=== PATIENT | male | born 1965 | race Caucasian/White ===

== ENCOUNTER 2020-11-24 20:40 | Inpatient (IN) | payer OTHER, SELFPAY ==
--- NOTE | 2020-11-24 | ECG_ITS ---
Test Reason : ABDOMINAL PAIN Blood Pressure : / mmHG Vent. Rate : 112 BPM Atrial Rate : 112 BPM P-R Int : 164 ms QRS Dur : 092 ms QT Int : 330 ms P-R-T Axes : 060 -30 083 degrees QTc Int : 450 ms Sinus tachycardia Possible Left atrial enlargement Left axis deviation Nonspecific T wave abnormality Abnormal ECG No previous ECGs available Referred By: Generic ED Physician Electronically Signed By:QUINTIN DORMAN MD
--- NOTE | ~2020-11-24 | XR_ITS ---
EXAMINATION: XR CHEST CLINICAL INFORMATION: Chest pain COMPARISON: None TECHNIQUE: Frontal view of the chest was obtained. FINDINGS: No significant abnormality is noted involving the heart, lungs, mediastinum, bony thorax or soft tissues. Some mild atelectasis or scarring is noted at the left base. XR/XR chest 1V IMPRESSION: No acute intrathoracic disease.
--- NOTE | ~2020-11-24 | CT_ITS ---
EXAMINATION: CT ABDOMEN AND PELVIS WITH CONTRAST CLINICAL INFORMATION: Abdominal pain. COMPARISON: CT abdomen and pelvis 11/12/2019. TECHNIQUE: Multidetector volumetric images were obtained from the superior aspect of the liver through the pubic symphysis following administration 85 mL of Omnipaque 350 intravenous contrast. Sagittal and coronal reformatted images were obtained on the technologist's workstation. Oral Contrast: No. This CT examination was performed using dose optimization techniques as appropriate, variously including the following: *Automated exposure control. *Adjustment of mA and/or kV according to patient size (this includes techniques or standardized protocols for targeted exams where dose is matched to indication/reason for exam; i.e. extremities or head). *Use of iterative reconstruction technique. DLP: 863 mGy-cm FINDINGS: LUNG BASES: The visualized lung bases are unremarkable. LIVER, GALLBLADDER, AND BILIARY TREE: The liver is normal in size, shape, and attenuation. There is a 2.2 cm hypervascular peripherally enhancing mass seen in the right lobe of the liver just beneath the hemidiaphragm (3:30) unchanged in size when compared to last year's study. This most likely represents a cavernous hemangioma. This could be proven with MRI exam. Also present are 2 hypoattenuating areas adjacent to the falciform ligament and gallbladder fossa which are also unchanged and may represent focal fat deposition. Another subtle lesion is seen just medial to the falciform ligament (series 3:39) which also appears similar in size from the study just over a year ago and may represent a hemangioma as well. No other focal hepatic lesion or biliary ductal dilatation is present. The gallbladder is unremarkable with no evidence of radiopaque gallstones, gallbladder wall thickening, or obvious pericholecystic inflammatory changes. PANCREAS: Unremarkable. SPLEEN: Unremarkable. ADRENAL GLANDS: Unremarkable. KIDNEYS AND URETERS: The kidneys are normal in size, shape, and attenuation. No hydronephrosis, hydroureter, or calculi seen. No perinephric stranding. BLADDER: Poorly distended but unremarkable GASTROINTESTINAL TRACT: At the time of the prior study, there was marked thickening/dilatation of the third and fourth portions of the duodenum along with dilatation of proximal jejunum with some inflammatory changes around it. These findings are somewhat improved but the inflammatory changes still persist and there is increased ascites especially around the abnormal jejunum in the left upper quadrant/mid abdomen. The fluid extends down into the pelvis in the perirectal region. The ileum and large bowel are unremarkable. The appendix is unremarkable. ABDOMINAL WALL: No significant hernia is appreciated. LYMPH NODES: No retroperitoneal lymphadenopathy is seen. VASCULAR: Unremarkable. PELVIC VISCERA: Seminal vesicles and prostate appear normal. OSSEOUS STRUCTURES: Unremarkable. CT/CT abdomen pelvis w con IMPRESSION: 1. Abnormal loops of proximal jejunum which appear edematous with associated edematous changes in the mesentery with fluid present extending down into the pelvis. No fluid is seen in the right abdomen. The most likely diagnosis is an enteritis. 2. Multiple liver masses probably unrelated to the patient's abdominal pain. Two may be cavernous hemangiomas and the other two regions may be focal fat. Compared to the study one year ago, there has been no significant change. MRI could be performed for further diagnosis and confirmation. This critical result was discussed with Dr. Pelayo at 11:45 PM on the day of the exam and it was ascertained that the content and urgency of the report was understood at the time of direct communication.
[2020-11-24 20:55] VITALS: BP 151/93; PULSE 120; RESP 20; TEMP 36.8; O2SAT 98; BMI 29.2
--- NOTE | 2020-11-24 21:14 | ED.ABDPAIN ---
HPI - Abdominal Pain General Chief Complaint: Abdominal Pain Stated Complaint: ABD PAIN,VOMITING Time Seen by Provider: 11/24/20 21:03 History of Present Illness HPI narrative: Patient is a 55-year-old male presents today with having abdominal pain. Diffuse over the entire abdomen worse in the epigastric area. It is dull in nature. Patient has extreme nausea vomiting. Unable to tolerate p.o.. No diarrhea. No history of abdominal surgery. Claims he has a history of gastritis and have similar pains every 6 months or so. Also has a history of possible coronary artery disease. Patient claims he went to [facility] and out catheterization about 1 week ago. He denies any chest pain. He does feel short of breath which is chronic. He denies any coughing congestion upper respiratory symptoms. No diaphoresis. MD elicited complaint: abdominal pain Related Data Home Medications Medication Instructions Recorded Confirmed albuterol sulfate [ProAir HFA] 1 puff INHALATION Q4H PRN 11/24/20 11/24/20 aspirin 1 tab PO DAILY 11/24/20 11/24/20 atorvastatin 1 tab PO DAILY 11/24/20 11/24/20 clonidine HCl 1 tab PO BID 11/24/20 11/24/20 fluoxetine 1 cap PO DAILY 11/24/20 11/24/20 gabapentin 300 mg PO BIDWM 11/24/20 11/24/20 gabapentin 600 mg PO BEDTIME 11/24/20 11/24/20 hydrochlorothiazide 1 tab PO DAILY 11/24/20 11/24/20 hydroxyzine HCl 1 tab PO BID 11/24/20 11/24/20 isosorbide mononitrate 1 tab PO DAILY 11/24/20 11/24/20 lisinopril 1 tab PO DAILY 11/24/20 11/24/20 omeprazole 1 cap PO DAILY 11/24/20 11/24/20 Allergies Allergy/AdvReac Type Severity Reaction Status Date / Time nut - unspecified [NUTS] Allergy Severe ANAPHALAXSI Unverified 05/27/20 19:49 S atorvastatin [ATORVASTATIN] Allergy Mild ITCHING Unverified 05/27/20 19:49 Review of Systems Review of Systems Constitutional: No Weight loss, No Fever, No Chills, No Night Sweats, No Fatigue, No Malaise ENT/Mouth: No Hearing loss, No Ear Pain, No Nasal Congestion, No Sinus Pain, No Hoarseness, No sore throat, No Rhinorrhea, No Swallowing Difficulty Eyes: No Eye Pain, No Swelling, No Redness, No Foreign Body, No Discharge, No Vision Changes Cardiovascular: No Chest Pain, positive SOB, No Dyspnea on Exertion, No Orthopnea, No Edema, No Palpitations Respiratory: No Cough, No Sputum, No Wheezing, No Smoke Exposure, No Dyspnea Gastrointestinal: Positive nausea, vomiting, abdominal pain Genitourinary: no irregular bleeding, No Dysuria, No Urinary Frequency, No Hematuria, No Urinary Incontinence, No Urgency, No Flank Pain, No Urinary Flow Changes, No Hesitancy Musculoskeletal: No joint pain, No Myalgias, No Joint Swelling Skin: No Skin Lesions, No rash Neuro: No Weakness, No Numbness, No Paresthesias, No Loss of Consciousness, No Dizziness, No Headache Psych: No Anxiety/Panic, No Depression, No SI/HI/AH/VH, No Social Issues, Heme/Lymph: No Bruising, No Bleeding,No Lymphadenopathy Endocrine: No Polyuria, No Polydipsia, No Temperature Intolerance Physical Exam Vital Signs: Vital Signs: Last Vital Signs Temp 98.2 F 11/24/20 20:55 Pulse 120 H 11/24/20 20:55 Resp 20 11/24/20 21:33 BP 151/93 H 11/24/20 20:55 Pulse Ox 98 11/24/20 20:55 Body Mass Index 29.2 Appearance: Alert. Oriented X3. No acute distress. Eyes: Pupils equal, round and reactive to light. ENT: Pharynx normal. Neck: Normal inspection. Neck supple. No lymph nodes noted. No crepitus CVS: Normal heart rate and rhythm. Pulses normal. Normal S1 and S2 Respiratory: No respiratory distress. Breath sounds normal. No Wheezing. No rales Abdomen: Soft and nontender. No rigidity. No distention. good BS x4 Skin: Skin warm and dry. Normal skin color. Normal skin turgor. Extremities: No lower extremity edema. Neurovascular intact to all extremities. No Lacerations. No Rash Neuro: Oriented X 3. No motor deficit. No sensory deficit. Moving all extermities. No slurred speech MDM - Abdominal Pain MDM Narrative Medical decision making narrative: Patient continued to have abdominal pain CT scan showed no obvious obstruction, abscess, perforation. Patient's troponin was negative. Chest x-ray negative for pneumonia. Will admit for further pain management. Nausea. Currently in stable condition. Lab Data Result diagrams: 11/24/20 21:29 11/24/20 21:29 Labs: Lab Results 11/24/20 11/24/20 11/24/20 Range/Units 21:28 21:29 21:29 WBC 4.6 L (4.8-10.8) X10*3/uL RBC 5.51 (4.60-5.80) X10*6/uL Hgb 16.3 (14.0-18.0) g/dl Hct 47.4 (42-52) % MCV 86.0 (80-98) fL MCH 29.6 (27.0-33.0) pg MCHC 34.4 (31.0-36.0) g/dl RDW 12.8 (11.0-16.0) % Plt Count 327 (160-400) X10*3/uL MPV 8.8 L (9.4-12.4) fL Immature Gran % (Auto) 0.4 (0.0-0.4) % Neut % (Auto) 59.2 (45-73) % Lymph % (Auto) 25.2 (20-40) % Mcdonough % (Auto) 13.4 H (2-11) % Eos % (Auto) 1.1 (0-4) % Baso % (Auto) 0.7 (0-2) % Lymph # (Auto) 1.2 (1.2-4.9) X10*3/uL Mcdonough # (Auto) 0.6 (0.1-1.2) X10*3/uL Eos # (Auto) 0.1 (0.0-0.4) X10*3/uL Baso # (Auto) 0.0 (0.0-0.2) X10*3/uL Abs Immat Gran (auto) 0.02 (0.00-0.03) X10*3/uL Absolute Neuts (auto) 2.7 (2.0-8.3) X10*3/uL Absolute Nucleated RBC 0.000 (0.0-0.012) X10*3/uL Nucleated RBC % (auto) 0.0 (0.0-0.2) /100WBC Sodium 138 (135-145) mmol/L Potassium 4.4 (3.3-5.1) mmol/L Chloride 100 (96-108) mmol/L Carbon Dioxide 28 (22-29) mmol/L Anion Gap 14 (12-20) BUN 18 H (9-16) mg/dL Creatinine 1.14 (0.5-1.4) mg/dL Estim Creat Clear Calc 88.2 Estimated GFR > 60 Random Glucose 128 H (60-115) mg/dL Lactic Acid (0.5-2.0) mmol/L Calcium 10.9 H (8.4-10.2) mg/dL Total Bilirubin 0.6 (0.0-1.0) mg/dL AST 40 H (5-37) U/L ALT 43 H (0-40) U/L Alkaline Phosphatase 71 (39-117) U/L Troponin I High Sens 22.9 (<3.5-35.0) ng/L Total Protein 7.2 (6.5-8.0) g/dL Albumin 4.4 (3.5-5.0) g/dL Lipase 76 (8-78) U/L Urine Color Urine Appearance Urine pH (5.0-8.0) Ur Specific [place] (1.005-1.025) Urine Protein (NEG-TRACE) MG/DL Urine Glucose (UA) (NEG) MG/DL Urine Ketones (NEG) MG/DL Urine Blood (NEG) Urine Nitrite (NEG) Ur Leukocyte Esterase (NEG) 11/24/20 11/25/20 Range/Units 21:29 00:32 WBC (4.8-10.8) X10*3/uL RBC (4.60-5.80) X10*6/uL Hgb (14.0-18.0) g/dl Hct (42-52) % MCV (80-98) fL MCH (27.0-33.0) pg MCHC (31.0-36.0) g/dl RDW (11.0-16.0) % Plt Count (160-400) X10*3/uL MPV (9.4-12.4) fL Immature Gran % (Auto) (0.0-0.4) % Neut % (Auto) (45-73) % Lymph % (Auto) (20-40) % Mcdonough % (Auto) (2-11) % Eos % (Auto) (0-4) % Baso % (Auto) (0-2) % Lymph # (Auto) (1.2-4.9) X10*3/uL Mcdonough # (Auto) (0.1-1.2) X10*3/uL Eos # (Auto) (0.0-0.4) X10*3/uL Baso # (Auto) (0.0-0.2) X10*3/uL Abs Immat Gran (auto) (0.00-0.03) X10*3/uL Absolute Neuts (auto) (2.0-8.3) X10*3/uL Absolute Nucleated RBC (0.0-0.012) X10*3/uL Nucleated RBC % (auto) (0.0-0.2) /100WBC Sodium (135-145) mmol/L Potassium (3.3-5.1) mmol/L Chloride (96-108) mmol/L Carbon Dioxide (22-29) mmol/L Anion Gap (12-20) BUN (9-16) mg/dL Creatinine (0.5-1.4) mg/dL Estim Creat Clear Calc Estimated GFR Random Glucose (60-115) mg/dL Lactic Acid 1.4 (0.5-2.0) mmol/L Calcium (8.4-10.2) mg/dL Total Bilirubin (0.0-1.0) mg/dL AST (5-37) U/L ALT (0-40) U/L Alkaline Phosphatase (39-117) U/L Troponin I High Sens (<3.5-35.0) ng/L Total Protein (6.5-8.0) g/dL Albumin (3.5-5.0) g/dL Lipase (8-78) U/L Urine Color YELLOW Urine Appearance CLEAR Urine pH 6.5 (5.0-8.0) Ur Specific [place] 1.015 (1.005-1.025) Urine Protein NEG (NEG-TRACE) MG/DL Urine Glucose (UA) NEG (NEG) MG/DL Urine Ketones NEG (NEG) MG/DL Urine Blood NEG (NEG) Urine Nitrite NEG (NEG) Ur Leukocyte Esterase NEG (NEG) ECG Data Interpretation: Sinus right bundle branch block heart rate was 90 per Discharge Plan Discharge Clinical Impression: Abdominal pain Patient Disposition: Admitted As Inpatient Prescriptions: No Action fluoxetine 40 mg capsule 1 cap PO DAILY RF: 0 atorvastatin 80 mg tablet 1 tab PO DAILY RF: 0 clonidine HCl 0.1 mg tablet 1 tab PO BID RF: 0 isosorbide mononitrate 30 mg tablet extended release 24 hr 1 tab PO DAILY RF: 0 hydroxyzine HCl 50 mg tablet 1 tab PO BID RF: 0 aspirin 81 mg tablet,delayed release (DR/EC) 1 tab PO DAILY RF: 0 gabapentin 300 mg capsule 300 mg PO BIDWM RF: 0 gabapentin 300 mg capsule 600 mg PO BEDTIME RF: 0 omeprazole 20 mg capsule,delayed release(DR/EC) 1 cap PO DAILY RF: 0 hydrochlorothiazide 25 mg tablet 1 tab PO DAILY RF: 0 albuterol sulfate [ProAir HFA] 90 mcg/actuation HFA aerosol inhaler 1 puff inhalation Q4H PRN (Reason: Shortness Of Breath) RF: 0 lisinopril 40 mg tablet 1 tab PO DAILY RF: 0 PMFSH Past Medical History Medical History (Updated 11/25/20 @ 01:33 by Swathi Pelayo MD) HTN (hypertension) Myocardial infarction Social History Social History Alcohol intake: never Smoking Status: Never smoker Use of substances other than those prescribed or required for medical reasons: No Advance Directives: No Advance Directives Information Provided: No
[2020-11-24 21:33] VITALS: RESP 20
[2020-11-24] MEDS: 0.9 % Sodium Chloride 1,000 ML 999 ML IV (21:33)
[2020-11-24] MEDS: HYDROmorphone HCl 0.5 MG/0.5 ML SYRINGE IVPUSH (21:33)
[2020-11-24] MEDS: ondansetron HCL 4 MG/2 ML VIAL IVPUSH (21:33)
[2020-11-24 21:36] LABS: Basophils Percent Auto 0.7 % (0-2); Eosinophils Absolute Auto 0.1 X10*3/uL (0.0-0.4); Eosinophils Percent Auto 1.1 % (0-4); Hematocrit 47.4 % (42-52); Hemoglobin 16.3 g/dl (14.0-18.0); Imm Gran Abs Auto 0.02 X10*3/uL (0.00-0.03); Imm Gran Pct Auto 0.4 % (0.0-0.4); Lymphocytes Absolute Auto 1.2 X10*3/uL (1.2-4.9); Lymphocytes Percent Auto 25.2 % (20-40); MANUAL DIFF FLAG NO; Mean Corpuscular HGB Conc 34.4 g/dl (31.0-36.0); Mean Corpuscular Hemoglobin 29.6 pg (27.0-33.0); Mean Platelet Volume 8.8 fL (9.4-12.4); Monocytes Absolute Auto 0.6 X10*3/uL (0.1-1.2); Monocytes Percent Auto 13.4 % (2-11); Neutrophils Absolute Auto 2.7 X10*3/uL (2.0-8.3); Neutrophils Percent Auto 59.2 % (45-73); Platelet Count 327 X10*3/uL (160-400); Red Blood Count 5.51 X10*6/uL (4.60-5.80); Red Cell Distribution Width 12.8 % (11.0-16.0); White Blood Count 4.6 X10*3/uL (4.8-10.8)
[2020-11-24 22:17] LABS: Lactic Acid 1.4 mmol/L (0.5-2.0)
[2020-11-24 22:22] LABS: Troponin-I High Sensitivity 22.9 ng/L (<3.5-35.0)
[2020-11-24 22:29] LABS: Alanine Aminotransferase 43 U/L (0-40); Albumin Level 4.4 g/dL (3.5-5.0); Alkaline Phosphatase 71 U/L (39-117); Anion Gap 14 (12-20); Aspartate Amino Transferase 40 U/L (5-37); Bilirubin Total 0.6 mg/dL (0.0-1.0); Blood Urea Nitrogen 18 mg/dL (9-16); Calcium 10.9 mg/dL (8.4-10.2); Carbon Dioxide 28 mmol/L (22-29); Chloride 100 mmol/L (96-108); Creatinine Clr Calc Pharmacy 88.2; Estimated Glomerular Filt Rate > 60; Glucose Random 128 mg/dL (60-115); Lipase 76 U/L (8-78); Potassium 4.4 mmol/L (3.3-5.1); Sodium 138 mmol/L (135-145); Total Protein 7.2 g/dL (6.5-8.0)
[2020-11-25 00:39] LABS: Glucose Urine UA NEG (NEG); Leukocyte Esterase Urine NEG (NEG); Nitrite Urine NEG (NEG); PH 6.5 (5.0-8.0); Specific Gravity - Urine 1.015 (1.005-1.025); Urine Blood NEG (NEG); Urine Ketones NEG (NEG); Urine Protein NEG (NEG-TRACE)
[2020-11-25 00:45] LABS: Appearance Urine CLEAR; Color Urine YELLOW
--- NOTE | 2020-11-25 01:36 | P.HPHOSP_ITS ---
History of Present Illness Date of Service: 11/25/20 Chief Complaint: Abdominal pain 55-year-old male with a past medical history of hypertension, hyperlipidemia, CAD, recent stent placement at [facility], anxiety, depression, history of gastritis presented to the hospital with a chief complaint of nausea vomiting and abdominal pain for the past couple days. Mentions that abdominal pain is diffuse. Denies any blood in the vomitus. Denies any diarrhea. Denies any fever chills cough. Denies any recent travel or sick contacts. Review of all other systems is negative except mentioned above ER course: Per ER team patient has abdominal tenderness, no guarding no rigidity; CT scan showed enteritis. Patient was given P was done and but failed. Admitted to the hospital for further management. Also mentioned that EKG was nonischemic and initial troponin was 22. [facility] Medical History (Updated 11/25/20 @ 01:33 by Swathi Pelayo MD) HTN (hypertension) Myocardial infarction Social History Alcohol intake: never Smoking Status: Never smoker Use of substances other than those prescribed or required for medical reasons: No Advance Directives: No Advance Directives Information Provided: No Meds Allergies Allergy/AdvReac Type Severity Reaction Status Date / Time nut - unspecified [NUTS] Allergy Severe ANAPHALAXSI Unverified 05/27/20 19:49 S atorvastatin [ATORVASTATIN] Allergy Mild ITCHING Unverified 05/27/20 19:49 Active Medications: Current Medications Generic Name Dose Route Start Last Admin Trade Name Freq PRN Reason Stop Dose Admin Acetaminophen 650 mg 11/25/20 01:31 Acetaminophen 325 Mg Tablet PO Q6H PRN Pain, Mild (Pain Scale 1-3) Albuterol Sulfate 1 puff 11/25/20 01:33 Albuterol Sulfate 90 Mcg 8 Gm Inhaler INHALE Q4H PRN Shortness Of Breath Aspirin 81 mg 11/25/20 09:00 Aspirin Enteric Coated 81 Mg Tablet. PO DAILY [facility] Atorvastatin Calcium 80 mg 11/25/20 09:00 Atorvastatin Calcium 80 Mg Tablet PO DAILY [facility] Clonidine HCl 0.1 mg 11/25/20 09:00 Clonidine Hcl 0.1 Mg Tablet PO BID [facility] Protocol Fluoxetine HCl 40 mg 11/25/20 09:00 Fluoxetine Hcl 20 Mg Capsule PO DAILY [facility] Gabapentin 600 mg 11/25/20 21:00 Gabapentin 300 Mg Capsule PO BEDTIME [facility] Gabapentin 300 mg 11/25/20 08:00 Gabapentin 300 Mg Capsule PO BIDWM [facility] Hydrochlorothiazide 25 mg 11/25/20 09:00 Hydrochlorothiazide 25 Mg Tablet PO DAILY [facility] Protocol Hydroxyzine HCl 50 mg 11/25/20 09:00 Hydroxyzine Hcl 50 Mg Tablet PO BID [facility] Dextrose/Sodium Chloride 1,000 mls @ 100 mls/hr 11/25/20 01:45 D51/2ns IVCONT .Q10H [facility] Isosorbide Mononitrate 30 mg 11/25/20 09:00 Isosorbide Mononitrate 30 Mg Tab.Er.24h PO DAILY [facility] Protocol Lisinopril 40 mg 11/25/20 09:00 Lisinopril 40 Mg Tablet PO DAILY [facility] Protocol Omeprazole 20 mg 11/25/20 09:00 Omeprazole 20 Mg Capsule.Dr PO DAILY [facility] Ondansetron HCl 4 mg 11/25/20 01:31 Ondansetron Hcl 4 Mg/2 Ml Vial IVPUSH Q8H PRN Nausea and Vomiting Sodium Chloride 3 ml 11/25/20 08:00 0.9 % Sodium Chloride Flush 3 Ml Syringe IVFLUSH QSHIFT [facility] Home Medications Medication Instructions Recorded Confirmed Last Taken Type albuterol sulfate 2 puff INHALATION Q4H PRN 11/25/20 11/25/20 Unknown History aspirin 1 tab PO DAILY 11/25/20 11/25/20 Unknown History clonidine HCl 1 tab PO BID 11/25/20 11/25/20 Unknown History hydrochlorothiazide 1 tab PO DAILY 11/25/20 11/25/20 Unknown History hydroxyzine HCl 1 tab PO BID 11/25/20 11/25/20 Unknown History isosorbide mononitrate 1 tab PO DAILY 11/25/20 11/25/20 Unknown History omeprazole 1 cap PO DAILY 11/25/20 11/25/20 Unknown History trazodone 1.5 tab PO BEDTIME PRN 11/25/20 11/25/20 Unknown History Physical Exam Vital Signs and Narrative: Vital Signs: Last Vital Signs Temp 98.2 F 11/24/20 20:55 Pulse 120 H 11/24/20 20:55 Resp 20 11/24/20 21:33 BP 151/93 H 11/24/20 20:55 Pulse Ox 98 11/24/20 20:55 Body Mass Index 29.2 Gen: Appears be in no acute distress HEENT: NCAT, Moist mucosa. Pulmonary: Vesicular breath sounds, fair air entry CVS: Normal S1-S2 Abdomen: BS+, Soft, diffusely tender; no guarding no rigidity Extremities: Warm well perfused Neuro: Alert and awake. Results Labs CBC and Chem 7: 11/24/20 21:29 11/24/20 21:29 Labs: Laboratory Results - last 24 hr 11/24/20 11/24/20 11/24/20 21:28 21:29 21:29 MCV 86.0 MCH 29.6 MCHC 34.4 RDW 12.8 Plt Count 327 MPV 8.8 L Immature Gran % (Auto) 0.4 Neut % (Auto) 59.2 Lymph % (Auto) 25.2 [place] % (Auto) 13.4 H Eos % (Auto) 1.1 Baso % (Auto) 0.7 Lymph # (Auto) 1.2 [place] # (Auto) 0.6 Eos # (Auto) 0.1 Baso # (Auto) 0.0 Abs Immat Gran (auto) 0.02 Absolute Neuts (auto) 2.7 Absolute Nucleated RBC 0.000 Nucleated RBC % (auto) 0.0 Anion Gap 14 Estim Creat Clear Calc 88.2 Estimated GFR > 60 Random Glucose 128 H Lactic Acid Calcium 10.9 H Total Bilirubin 0.6 AST 40 H ALT 43 H Alkaline Phosphatase 71 Troponin I High Sens 22.9 Total Protein 7.2 Albumin 4.4 Lipase 76 Urine Color Urine Appearance Urine pH Ur Specific [place] Urine Protein Urine Glucose (UA) Urine Ketones Urine Blood Urine Nitrite Ur Leukocyte Esterase 11/24/20 11/25/20 21:29 00:32 MCV MCH MCHC RDW Plt Count MPV Immature Gran % (Auto) Neut % (Auto) Lymph % (Auto) [place] % (Auto) Eos % (Auto) Baso % (Auto) Lymph # (Auto) [place] # (Auto) Eos # (Auto) Baso # (Auto) Abs Immat Gran (auto) Absolute Neuts (auto) Absolute Nucleated RBC Nucleated RBC % (auto) Anion Gap Estim Creat Clear Calc Estimated GFR Random Glucose Lactic Acid 1.4 Calcium Total Bilirubin AST ALT Alkaline Phosphatase Troponin I High Sens Total Protein Albumin Lipase Urine Color YELLOW Urine Appearance CLEAR Urine pH 6.5 Ur Specific [place] 1.015 Urine Protein NEG Urine Glucose (UA) NEG Urine Ketones NEG Urine Blood NEG Urine Nitrite NEG Ur Leukocyte Esterase NEG Imaging Radiologist's Impressions: Impressions Abdomen/Pelvis CT 11/24/20 21:10 IMPRESSION: 1. Abnormal loops of proximal jejunum which appear edematous with associated edematous changes in the mesentery with fluid present extending down into the pelvis. No fluid is seen in the right abdomen. The most likely diagnosis is an enteritis. 2. Multiple liver masses probably unrelated to the patient's abdominal pain. Two may be cavernous hemangiomas and the other two regions may be focal fat. Compared to the study one year ago, there has been no significant change. MRI could be performed for further diagnosis and confirmation. This critical result was discussed with Dr. Pelayo at 11:45 PM on the day of the exam and it was ascertained that the content and urgency of the report was understood at the time of direct communication. Chest X-Ray 11/24/20 21:14 IMPRESSION: No acute intrathoracic disease. Assessment and Plan (1) Abdominal pain: Status: Acute 55-year-old male with a past medical history of hypertension, hyperlipidemia, CAD status post stent placement about a week ago at [facility], anxiety, depression presented to the hospital with a chief complaint of nausea vomiting and abdominal pain. CT scan showed enteritis. Admitted to the hospital for further management. Abdominal pain: Likely in the setting of enteritis. Supportive care. IV fluids Clear liquid diet-advanced diet as tolerated. Multiple liver masses: Patient noted to have these similar findings on the CT scan about a year ago. No significant change. Recommended follow-up with Gastroenterology. History of hypertension/hyperlipidemia/CAD: Continue home medications aspirin statin Imdur DVT prophylaxis: SCD boots Code status: Full code
[2020-11-25] MEDS: HYDROmorphone HCl 0.5 MG/0.5 ML SYRINGE IVPUSH ×4 (01:53→20:25)
[2020-11-25] MEDS: Dextrose 5 % and 0.45 % NaCl 1,000 ML 100 ML IVCONT ×3 (01:56→21:27)
[2020-11-25 01:59] VITALS: BP 127/93; PULSE 79; RESP 18; TEMP 36.8; O2SAT 98
[2020-11-25 03:55] LABS: COVID-19 Test Negative (Negative); IDNOW Serial# 9DD0AD1C
--- NOTE | 2020-11-25 05:33 | PC.NURSE ---
pt denies hi or si at this time. only seeking help for detox.
[2020-11-25 06:38] LABS: MANUAL DIFF FLAG NO
[2020-11-25 06:49] LABS: Basophils Percent Auto 0.4 % (0-2); Eosinophils Absolute Auto 0.1 X10*3/uL (0.0-0.4); Eosinophils Percent Auto 1.3 % (0-4); Hematocrit 42.1 % (42-52); Hemoglobin 14.1 g/dl (14.0-18.0); Imm Gran Abs Auto 0.01 X10*3/uL (0.00-0.03); Imm Gran Pct Auto 0.2 % (0.0-0.4); Lymphocytes Absolute Auto 1.4 X10*3/uL (1.2-4.9); Lymphocytes Percent Auto 30.3 % (20-40); Mean Corpuscular HGB Conc 33.5 g/dl (31.0-36.0); Mean Corpuscular Hemoglobin 29.2 pg (27.0-33.0); Mean Corpuscular Volume 87.2 fL (80-98); Monocytes Absolute Auto 0.6 X10*3/uL (0.1-1.2); Monocytes Percent Auto 12.3 % (2-11); Neutrophils Absolute Auto 2.5 X10*3/uL (2.0-8.3); Neutrophils Percent Auto 55.5 % (45-73); Platelet Count 271 X10*3/uL (160-400); Red Blood Count 4.83 X10*6/uL (4.60-5.80); White Blood Count 4.6 X10*3/uL (4.8-10.8)
[2020-11-25] MEDS: Omeprazole 20 MG CAPSULE.DR PO (07:14)
[2020-11-25] MEDS: Gabapentin 300 MG CAPSULE PO ×2 (07:14→15:59)
[2020-11-25 07:21] LABS: Anion Gap 11 (12-20); Blood Urea Nitrogen 15 mg/dL (9-16); Calcium 9.6 mg/dL (8.4-10.2); Carbon Dioxide 29 mmol/L (22-29); Chloride 105 mmol/L (96-108); Creatinine Clr Calc Pharmacy 83.1; Estimated Glomerular Filt Rate > 60; Glucose Random 133 mg/dL (60-115); Potassium 3.7 mmol/L (3.3-5.1); Sodium 141 mmol/L (135-145)
--- NOTE | 2020-11-25 07:59 | PC.NURSE ---
pt c/o abd pain and wNTS SOMETHING MORE THAN APAP, OVERNIGHT RN TEXTED OVERNIGHT DR YOO NO RESPONSE, I TEXTED DR SNOW AND HE'LL REVIEW , PT MEDICATED W SOME AM MEDS AND NOW RESTING W EYES CLOSED
[2020-11-25 09:16] VITALS: BP 141/95; PULSE 66
[2020-11-25] MEDS: cloNIDine HCL 0.1 MG TABLET PO ×2 (09:16→21:25)
[2020-11-25] MEDS: Aspirin Enteric Coated 81 MG TABLET.DR PO (09:17)
[2020-11-25] MEDS: Isosorbide Mononitrate 30 MG TAB.ER.24H PO (09:18)
[2020-11-25] MEDS: hydroCHLOROthiazide 25 MG TABLET PO (09:18)
[2020-11-25] MEDS: hydrOXYzine HCL 50 MG TABLET PO ×2 (09:18→21:25)
[2020-11-25] MEDS: lisinopriL 40 MG TABLET PO (09:18)
[2020-11-25] MEDS: 0.9 % Sodium Chloride Flush 3 ML SYRINGE IVFLUSH (09:23)
--- NOTE | 2020-11-25 09:25 | PC.NURSE ---
Pt reports a history of difficulty breathing and rash with Atorvastatin. He states that he has been reciving it and it has been making him itchy but denies SOB. Allergies updated and primary RN aware.
--- NOTE | 2020-11-25 10:20 | MHC.CM.PN ---
Attempted to meet with patient in regards to discharge planning. Patient is currently sleeping. Attempted to speak with sig other, Mala via telephone [phone]. No answer and no ability to leave a message. Case Management assessment completed using patient's medical record. Patient was at [facility] prior to coming to [facility]. A copy of his HCP was obtained from [facility]. His PCP is at [facility]. At this time, his discharge plan cannot be determined. Continue to monitor for d/c needs.
[2020-11-25 10:21] VITALS: BP 113/69; PULSE 72; RESP 16; O2SAT 98
--- NOTE | 2020-11-25 11:06 | P.EN_ITS ---
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
--- NOTE | 2020-11-25 11:06 | PM.EVENT ---
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
--- NOTE | 2020-11-25 11:26 | PC.NURSE ---
patient a&ox3, monitoring manager nsr 70s, ivf running per order, will continue to monior.
--- NOTE | 2020-11-25 11:57 | PC.NURSE ---
patients left for the day, patient continues to take off hospital attire in bed, vitals continue to be stable, attempting to redirect patient, will continue to monitor.
--- NOTE | 2020-11-25 14:18 | PC.NURSE ---
PT NOT ON MINDRAY MONITOR @ THIS TIME, FAMILY CONSULTANT UNABLE TO PRINT JBOSS DEVELOPER STRIPS FOR TELEMETRY MONITORING, RN TO PRINT ZOLE STRIPS
--- NOTE | 2020-11-25 14:57 | PC.NURSE ---
patient a&ox3, pt bed moved to 19H, pt ate 100% of lunch- denies nausea, will continue to monitor.
--- NOTE | 2020-11-25 16:00 | PC.NURSE ---
patient a&ox3, ambulated to bathroom independently, pt stated he does not like being in a patel bed, pt stated my insurance is just as good as everybody elses and I deserve a room pt also spoke with the charge nurse about his concern, pt also stated I didn't even want to come to this place, I prefered to go to [facility] pt was medicated with pain meds per pt request for 06/19 abd pain as well as his scheduled meds, will continue to monitor.
--- NOTE | 2020-11-25 16:32 | PC.NURSE ---
partner alliance manager of ed spoke with patient who was continued to be upset. per request of jaspreet, nursing correctional supply supervisor mauro nelson was tiger texted so see if we can expedite the patient to a room
--- NOTE | 2020-11-25 18:01 | PC.NURSE ---
Pt requesting pain medication, offered tylenol, declined, stated I'll wait till I can take my Dilaudid again . Pt ate 100% of dinner. No grimacing or guarding noted at this time.
--- NOTE | 2020-11-25 19:35 | PC.NURSE ---
This RN contacted [facility] to give RN to RN report, but nurse is unavailable at this time and will call back for report. Awaiting call back. Pt aware.
--- NOTE | 2020-11-25 19:56 | PC.NURSE ---
Report given to MODE Leblanc. Preparing for transfer to [id number]
[2020-11-25 20:00] VITALS: BP 108/67; PULSE 72; RESP 18; TEMP 36.4; O2SAT 96
[2020-11-25 20:25] VITALS: RESP 18
[2020-11-25] MEDS: Gabapentin 300 MG CAPSULE 600 MG PO (21:26)
[2020-11-25 23:30] VITALS: BP 125/71; PULSE 87; RESP 18; TEMP 36.8; O2SAT 94
[2020-11-26] VITALS (8 sets, daily range): BP systolic 111–154; BP diastolic 61–94; PULSE 61–81; RESP 16–20; TEMP 36.3–36.8; O2SAT 92–96
[2020-11-26] MEDS: HYDROmorphone HCl 0.5 MG/0.5 ML SYRINGE IVPUSH ×6 (00:26→22:08)
[2020-11-26] MEDS: 0.9 % Sodium Chloride Flush 3 ML SYRINGE IVFLUSH ×3 (00:38→20:24)
[2020-11-26] MEDS: Omeprazole 20 MG CAPSULE.DR PO (06:01)
[2020-11-26 06:46] LABS: MANUAL DIFF FLAG NO
[2020-11-26 06:53] LABS: Basophils Percent Auto 0.8 % (0-2); Eosinophils Absolute Auto 0.2 X10*3/uL (0.0-0.4); Eosinophils Percent Auto 4.8 % (0-4); Hematocrit 41.4 % (42-52); Hemoglobin 13.4 g/dl (14.0-18.0); Imm Gran Abs Auto 0.01 X10*3/uL (0.00-0.03); Imm Gran Pct Auto 0.3 % (0.0-0.4); Lymphocytes Absolute Auto 1.8 X10*3/uL (1.2-4.9); Lymphocytes Percent Auto 46.8 % (20-40); Mean Corpuscular HGB Conc 32.4 g/dl (31.0-36.0); Mean Corpuscular Hemoglobin 29.1 pg (27.0-33.0); Mean Platelet Volume 9.1 fL (9.4-12.4); Monocytes Absolute Auto 0.6 X10*3/uL (0.1-1.2); Monocytes Percent Auto 15.2 % (2-11); Neutrophils Absolute Auto 1.2 X10*3/uL (2.0-8.3); Neutrophils Percent Auto 32.1 % (45-73); Platelet Count 268 X10*3/uL (160-400); Red Cell Distribution Width 13.2 % (11.0-16.0); White Blood Count 3.8 X10*3/uL (4.8-10.8)
[2020-11-26 07:04] LABS: Prothrombin Time 12.2 SEC (10.8-13.0)
[2020-11-26] MEDS: Dextrose 5 % and 0.45 % NaCl 1,000 ML 100 ML IVCONT (07:23)
[2020-11-26 07:27] LABS: Alanine Aminotransferase 37 U/L (0-40); Albumin Level 3.8 g/dL (3.5-5.0); Alkaline Phosphatase 67 U/L (39-117); Anion Gap 11 (12-20); Aspartate Amino Transferase 31 U/L (5-37); Bilirubin Direct < 0.2 mg/dL (0.0-0.5); Bilirubin Total 0.4 mg/dL (0.0-1.0); Blood Urea Nitrogen 17 mg/dL (9-16); Calcium 9.2 mg/dL (8.4-10.2); Carbon Dioxide 31 mmol/L (22-29); Chloride 102 mmol/L (96-108); Creatinine Clr Calc Pharmacy 76.2; Estimated Glomerular Filt Rate 57; Glucose Fasting 100 mg/dL (60-99); Magnesium 1.9 mg/dL (1.6-2.6); Potassium 4.5 mmol/L (3.3-5.1); Sodium 139 mmol/L (135-145)
[2020-11-26] MEDS: Gabapentin 300 MG CAPSULE PO ×2 (07:30→16:02)
[2020-11-26] MEDS: hydroCHLOROthiazide 25 MG TABLET PO (08:50)
[2020-11-26] MEDS: Isosorbide Mononitrate 30 MG TAB.ER.24H PO (08:50)
[2020-11-26] MEDS: hydrOXYzine HCL 50 MG TABLET PO ×2 (08:51→20:22)
[2020-11-26] MEDS: Atorvastatin Calcium 80 MG TABLET PO (08:51)
[2020-11-26] MEDS: lisinopriL 40 MG TABLET PO (08:51)
[2020-11-26] MEDS: Aspirin Enteric Coated 81 MG TABLET.DR PO (08:51)
[2020-11-26] MEDS: cloNIDine HCL 0.1 MG TABLET PO ×2 (08:51→20:22)
--- NOTE | 2020-11-26 10:32 | P.PNIM_ITS ---
Subjective Subjective Date of Service: 11/26/20 Interval History: less pain when eating Cardiovascular Cardiovascular: Reports no additional cardiovascular complaints Respiratory Respiratory: Reports no additional respiratory complaints Physical Exam Vital Signs: Vital Signs: Last Vital Signs Temp 97.8 F 11/26/20 08:00 Pulse 64 11/26/20 08:51 Resp 20 11/26/20 08:00 BP 154/94 H 11/26/20 08:51 Pulse Ox 93 11/26/20 08:00 Body Mass Index 29.2 General: AO X 3, no acute distress Resp: CTA bilateral CVS: S1,S2,RRR GI: soft, tender, non distended Neuro: motor grossly intact Psych: appropriate affect Objective Data Current Medications Generic Name Dose Route Start Last Admin Trade Name Freq PRN Reason Stop Dose Admin Acetaminophen 650 mg 11/25/20 01:31 Acetaminophen 325 Mg Tablet PO Q6H PRN Pain, Mild (Pain Scale 1-3) Albuterol Sulfate 1 puff 11/25/20 01:33 Albuterol Sulfate 90 Mcg 8 Gm Inhaler INHALE Q4H PRN Shortness Of Breath Aspirin 81 mg 11/25/20 09:00 11/26/20 08:51 Aspirin Enteric Coated 81 Mg Tablet.Dr PO 81 mg DAILY JESSE Administration Atorvastatin Calcium 80 mg 11/25/20 09:00 11/26/20 08:51 Atorvastatin Calcium 80 Mg Tablet PO 80 mg DAILY JESSE Administration Clonidine HCl 0.1 mg 11/25/20 09:00 11/26/20 08:51 Clonidine Hcl 0.1 Mg Tablet PO 0.1 mg BID JESSE Administration Protocol Fluoxetine HCl 40 mg 11/25/20 09:00 11/26/20 08:51 Fluoxetine Hcl 20 Mg Capsule PO Not Given DAILY JESSE Gabapentin 600 mg 11/25/20 21:00 11/25/20 21:26 Gabapentin 300 Mg Capsule PO 600 mg BEDTIME JESSE Administration Gabapentin 300 mg 11/25/20 08:00 11/26/20 07:30 Gabapentin 300 Mg Capsule PO 300 mg BIDWM JESSE Administration Hydrochlorothiazide 25 mg 11/25/20 09:00 11/26/20 08:50 Hydrochlorothiazide 25 Mg Tablet PO 25 mg DAILY JESSE Administration Protocol Hydromorphone HCl 0.5 mg 11/25/20 07:18 11/26/20 08:51 Hydromorphone Hcl 0.5 Mg/0.5 Ml Syringe IVPUSH 0.5 mg Q4H PRN Administration pain Hydroxyzine HCl 50 mg 11/25/20 09:00 11/26/20 08:51 Hydroxyzine Hcl 50 Mg Tablet PO 50 mg BID JESSE Administration Dextrose/Sodium Chloride 1,000 mls @ 100 mls/hr 11/25/20 01:45 11/26/20 07:23 D51/2ns IVCONT 100 mls/hr .Q10H JESSE Administration Isosorbide Mononitrate 30 mg 11/25/20 09:00 11/26/20 08:50 Isosorbide Mononitrate 30 Mg Tab.Er.24h PO 30 mg DAILY JESSE Administration Protocol Lisinopril 40 mg 11/25/20 09:00 11/26/20 08:51 Lisinopril 40 Mg Tablet PO 40 mg DAILY [facility] Administration Protocol Omeprazole 20 mg 11/25/20 06:30 11/26/20 06:01 Omeprazole 20 Mg Capsule.Dr PO 20 mg DAILY@0630 JESSE Administration Ondansetron HCl 4 mg 11/25/20 01:31 Ondansetron Hcl 4 Mg/2 Ml Vial IVPUSH Q8H PRN Nausea and Vomiting Sodium Chloride 3 ml 11/25/20 08:00 11/26/20 07:24 0.9 % Sodium Chloride Flush 3 Ml Syringe IVFLUSH Not Given QSHIFT [facility] Labs CBC & Chem 7: 11/26/20 05:58 11/26/20 05:58 Microbiology Microbiology Results: Microbiology 11/25/20 03:53 Blood - Venous Blood Culture - Preliminary No growth after 24 hours. 11/24/20 21:29 Blood - Venous Blood Culture - Preliminary No growth after 24 hours. Assessment and Plan (1) Enteritis: Status: Acute (2) Alcohol dependence: Status: Acute (3) CAD (coronary artery disease): Status: Acute (4) HTN (hypertension): Status: Acute Assessment and Plan: 55M with recent NSTEMI due to cocaine vasospasms, presented with abdominal pain enteritis likely due to cocaine improved, but still too much pain to go home continue to monitor advance diet as tolerated cad asa, statin
--- NOTE | 2020-11-26 11:46 | MHC.CM.PN ---
per rounds no anticapated dc date at this time
[2020-11-26] MEDS: Albuterol Sulfate 90 MCG 8 GM INHALER 1 PUFF INHALE (16:18)
[2020-11-26] MEDS: Gabapentin 300 MG CAPSULE 600 MG PO (20:22)
[2020-11-27 02:30] VITALS: RESP 18
[2020-11-27] MEDS: HYDROmorphone HCl 0.5 MG/0.5 ML SYRINGE IVPUSH ×3 (02:30→11:09)
[2020-11-27 04:00] VITALS: BP 150/82; PULSE 58; RESP 18; TEMP 36.3; O2SAT 95
[2020-11-27 05:19] LABS: MANUAL DIFF FLAG NO
[2020-11-27 05:22] LABS: Basophils Percent Auto 1.3 % (0-2); Eosinophils Absolute Auto 0.2 X10*3/uL (0.0-0.4); Eosinophils Percent Auto 5.1 % (0-4); Hematocrit 39.2 % (42-52); Hemoglobin 13.1 g/dl (14.0-18.0); Imm Gran Abs Auto 0.01 X10*3/uL (0.00-0.03); Imm Gran Pct Auto 0.3 % (0.0-0.4); Lymphocytes Absolute Auto 1.3 X10*3/uL (1.2-4.9); Lymphocytes Percent Auto 40.8 % (20-40); Mean Corpuscular HGB Conc 33.4 g/dl (31.0-36.0); Mean Corpuscular Hemoglobin 28.9 pg (27.0-33.0); Mean Corpuscular Volume 86.3 fL (80-98); Monocytes Absolute Auto 0.4 X10*3/uL (0.1-1.2); Monocytes Percent Auto 13.2 % (2-11); Neutrophils Absolute Auto 1.2 X10*3/uL (2.0-8.3); Neutrophils Percent Auto 39.3 % (45-73); Platelet Count 247 X10*3/uL (160-400); Red Blood Count 4.54 X10*6/uL (4.60-5.80); Red Cell Distribution Width 12.6 % (11.0-16.0); White Blood Count 3.1 X10*3/uL (4.8-10.8)
[2020-11-27 05:48] LABS: Anion Gap 12 (12-20); Blood Urea Nitrogen 18 mg/dL (9-16); Calcium 9.5 mg/dL (8.4-10.2); Carbon Dioxide 30 mmol/L (22-29); Chloride 104 mmol/L (96-108); Creatinine Clr Calc Pharmacy 96.7; Estimated Glomerular Filt Rate > 60; Glucose Fasting 118 mg/dL (60-99); Potassium 3.9 mmol/L (3.3-5.1); Sodium 142 mmol/L (135-145)
[2020-11-27] MEDS: Omeprazole 20 MG CAPSULE.DR PO (06:29)
[2020-11-27 07:16] VITALS: BP 150/94; PULSE 60; RESP 17; TEMP 36.2; O2SAT 94
[2020-11-27 08:39] VITALS: BP 150/94; PULSE 60
[2020-11-27] MEDS: cloNIDine HCL 0.1 MG TABLET PO (08:39)
[2020-11-27] MEDS: Gabapentin 300 MG CAPSULE PO (08:39)
[2020-11-27 08:40] VITALS: BP 150/94; PULSE 60
[2020-11-27] MEDS: Isosorbide Mononitrate 30 MG TAB.ER.24H PO (08:40)
[2020-11-27] MEDS: hydroCHLOROthiazide 25 MG TABLET PO (08:40)
[2020-11-27] MEDS: 0.9 % Sodium Chloride Flush 3 ML SYRINGE IVFLUSH (08:41)
[2020-11-27] MEDS: hydrOXYzine HCL 50 MG TABLET PO (08:41)
[2020-11-27 08:48] VITALS: BP 150/94; PULSE 60
[2020-11-27] MEDS: Aspirin Enteric Coated 81 MG TABLET.DR PO (08:48)
[2020-11-27] MEDS: lisinopriL 40 MG TABLET PO (08:48)
[2020-11-27] MEDS: Atorvastatin Calcium 80 MG TABLET PO (08:48)
--- NOTE | 2020-11-27 10:19 | PM.DS ---
DS: Providers Provider Date of Service: 11/27/20 Date of admission: 11/25/20 01:32 Primary care physician: Unknown Physician DS: Diagnosis Discharge Diagnosis (1) Enteritis: Status: Acute (2) Alcohol dependence: Status: Acute (3) CAD (coronary artery disease): Status: Acute (4) HTN (hypertension): Status: Acute DS: Medications Discharge Medications Home Medications: Home Medications Medication Instructions Recorded Confirmed albuterol sulfate 2 puff INHALATION Q4H PRN 11/25/20 11/25/20 aspirin 1 tab PO DAILY 11/25/20 11/25/20 atorvastatin 1 tab PO DAILY 11/25/20 11/25/20 clonidine HCl 1 tab PO BID 11/25/20 11/25/20 gabapentin 300 mg PO DAILY 11/25/20 11/25/20 gabapentin 600 mg PO BEDTIME 11/25/20 11/25/20 hydrochlorothiazide 1 tab PO DAILY 11/25/20 11/25/20 hydroxyzine HCl 1 tab PO BID 11/25/20 11/25/20 isosorbide mononitrate 1 tab PO DAILY 11/25/20 11/25/20 lisinopril 1 tab PO DAILY 11/25/20 11/25/20 omeprazole 1 cap PO DAILY 11/25/20 11/25/20 trazodone 1.5 tab PO BEDTIME PRN 11/25/20 11/25/20 DS: Summary Hospital Course Hospital Course: Patient was admitted for enteritis likely due to cocaine use and vasospasm. He was given IV fluids, pain medications. His diet was slowly increased. His pain improved and was able to tolerate solid diet. Patient will be discharged home. He was recommended to not take cocaine anymore. He should follow up with Cardiology for recent cocaine induced NSTEMI. Time Spent with Patient Time attestation: Total time spent providing and/or coordinating discharge services: Discharge coordination time: Greater than 30 minutes Physical Exam Vital Signs: Vital Signs: Last Vital Signs Temp 97.1 F 11/27/20 07:16 Pulse 60 11/27/20 08:48 Resp 17 11/27/20 07:16 BP 150/94 H 11/27/20 08:48 Pulse Ox 94 11/27/20 07:16 Body Mass Index 29.2 General: AO X 3, no acute distress Resp: CTA bilateral CVS: S1,S2,RRR GI: soft, non tender, non distended Neuro: motor grossly intact Psych: appropriate affect DS: Data Data Completed and Pending Labs on day of discharge: Laboratory Results - last 24 hr 11/27/20 11/27/20 05:03 05:03 WBC 3.1 L RBC 4.54 L Hgb 13.1 L Hct 39.2 L MCV 86.3 MCH 28.9 MCHC 33.4 RDW 12.6 Plt Count 247 MPV 9.0 L Immature Gran % (Auto) 0.3 Neut % (Auto) 39.3 L Lymph % (Auto) 40.8 H [place] % (Auto) 13.2 H Eos % (Auto) 5.1 H Baso % (Auto) 1.3 Lymph # (Auto) 1.3 [place] # (Auto) 0.4 Eos # (Auto) 0.2 Baso # (Auto) 0.0 Abs Immat Gran (auto) 0.01 Absolute Neuts (auto) 1.2 L Absolute Nucleated RBC 0.000 Nucleated RBC % (auto) 0.0 Sodium 142 Potassium 3.9 Chloride 104 Carbon Dioxide 30 H Anion Gap 12 BUN 18 H Creatinine 1.04 Estim Creat Clear Calc 96.7 Estimated GFR > 60 Fasting Glucose 118 H Calcium 9.5 Preliminary micro results at discharge 11/25/20 03:53 Blood Culture - Preliminary Blood - Venous No growth after 48 hours. 11/24/20 21:29 Blood Culture - Preliminary Blood - Venous No growth after 48 hours. Discharge Plan Discharge Patient Disposition: Home, Self-Care Referrals: Physician,Unknown [Primary Care Provider] - Discharge Medications: Continued clonidine HCl 0.1 mg tablet 1 tab PO BID RF: 0 isosorbide mononitrate 30 mg tablet extended release 24 hr 1 tab PO DAILY RF: 0 hydroxyzine HCl 50 mg tablet 1 tab PO BID RF: 0 aspirin 81 mg tablet,delayed release (DR/EC) 1 tab PO DAILY RF: 0 trazodone 100 mg tablet 1.5 tab PO BEDTIME PRN (Reason: Insomnia) RF: 0 omeprazole 20 mg capsule,delayed release(DR/EC) 1 cap PO DAILY RF: 0 hydrochlorothiazide 25 mg tablet 1 tab PO DAILY RF: 0 albuterol sulfate 90 mcg/actuation HFA aerosol inhaler 2 puff inhalation Q4H PRN (Reason: wheezing) RF: 0 atorvastatin 80 mg tablet 1 tab PO DAILY RF: 0 gabapentin 300 mg capsule 300 mg PO DAILY RF: 0 gabapentin 300 mg Capsule 600 mg PO BEDTIME RF: 0 lisinopril 40 mg tablet 1 tab PO DAILY RF: 0 Discharge Orders: Discharge Order (Routine); Ordered 11/27/20 Ordered By: Raudel Walls Activity on Discharge: As tolerated Stand Alone Forms: Patient Portal Discharge page Care Plan Goals: recovery Health Concerns: enteritis Plan of Treatment: conservative management
--- NOTE | 2020-11-27 11:42 | MHC.CM.PN ---
PT DISCHARGING TODAY HOME SELF-CARE, CAB VOUCHER GIVEN TO PT FOR TRANSPORT TO [facility], CM CONTACTED ADMISSIONS DUE TO PT WANTING TO RETURN AND PT WAS GIVEN A 3PM ADMISSION TIME, PT REPORTS HE WAS INTERESTED IN CSS AND PER ADMISSION [facility] PT WOULD BE ABLE TO TRANSFER TO [facility] IN 1-2 DAYS, PT AWARE. D/C SUMMARY FAXED TO [facility] ADMISSIONS AT [phone].
== END 2020-11-27 12:00 | disposition home or self-care (01) | DRG 816 ==
LOC: HO.ED 11-25 01:33 → HO.EDOVER 11-25 04:49 → HO.IMC 11-25 19:24
PROVIDERS: Admitting Provider Hospitalist; Emergency Provider Emergency Medicine Emergency Medical Services; Visit Provider Internal Medicine
DX: T40.5X1A Poisoning by cocaine, accidental (unintentional), initial encounter (principal); I21.4 Non-ST elevation (NSTEMI) myocardial infarction; K52.1 Toxic gastroenteritis and colitis; K52.9 Noninfective gastroenteritis and colitis, unspecified; F10.20 Alcohol dependence, uncomplicated; I25.10 Atherosclerotic heart disease of native coronary artery without angina pectoris; Y92.9 Unspecified place or not applicable; I10 Essential (primary) hypertension; Z20.822 Contact with and (suspected) exposure to COVID-19; Z79.82 Long term (current) use of aspirin; Z88.6 Allergy status to analgesic agent; Z79.899 Other long term (current) drug therapy
CPT/HCPCS: 36415; 71045; 74177; 80048; 80053; 80076; 81003; 83605; 83690; 83735; 84484; 85025; 85027; 85610; 87040; 87635; 93005; 96374; 96375; 99285; J1170; J2405; Q9967

== ENCOUNTER 2020-11-28 17:34 | Emergency (ER) | payer OTHER, SELFPAY ==
--- NOTE | ~2020-11-28 | XR_ITS ---
EXAMINATION: XR CHEST CLINICAL INFORMATION: Chest pain COMPARISON: 11/24/2020 TECHNIQUE: Frontal view of the chest was obtained. FINDINGS: Normal symmetric lung volumes. No parenchymal consolidation. No pleural effusion. No pneumothorax. Cardiomediastinal silhouette and pulmonary vascularity are within normal limits. No acute osseous abnormalities. XR/XR chest 1V IMPRESSION: Unremarkable examination.
[2020-11-28 17:42] VITALS: BP 110/60; BP 111/73; PULSE 100; PULSE 96; RESP 14; TEMP 36.7; O2SAT 96; O2SAT 97; BMI 29.2
--- NOTE | 2020-11-28 17:52 | ECG_ITS ---
Test Reason : CHEST PAIN Blood Pressure : / mmHG Vent. Rate : 094 BPM Atrial Rate : 094 BPM P-R Int : 168 ms QRS Dur : 082 ms QT Int : 352 ms P-R-T Axes : 056 -20 088 degrees QTc Int : 440 ms Normal sinus rhythm Nonspecific T wave abnormality Abnormal ECG When compared with ECG of 24-NOV-2020 20:54, T wave inversion now evident in Anterior leads Referred By: Timmy Randhawa Electronically Signed By:CICI CANTU
--- NOTE | 2020-11-28 17:52 | ED.CHESTPAIN ---
HPI - Chest Pain General Chief Complaint: Chest Pain Stated Complaint: chest pain Time Seen by Provider: 11/28/20 17:52 Source: patient Mode of arrival: EMS Limitations: no limitations History of Present Illness HPI narrative: Patient history of cocaine abuse hypertension hyperlipidemia had a cardiac catheterization on 11/14 nonobstructive coronary artery disease likely from use of cocaine. Today an hour prior to arrival when patient was at [facility] for alcohol abuse patient noticed similar pain going to your jaw similar to that what he had in on 11/14. Patient used cocaine yesterday and has been using cocaine since age 18. Patient received 324 mg of aspirin and 1 nitro and feeling little better now but still having the pain, EKG done was done at [facility] showed no acute ST T wave changes MD complaint: chest heaviness Onset (ago): hour(s) Timing of current episode: constant Prior episodes: Yes Onset: during rest Pain location: substernal Pain radiation: neck Severity: moderate Relieving factors: nothing Exacerbating factors: nothing Related Data Home Medications Medication Instructions Recorded Confirmed albuterol sulfate 2 puff INHALATION Q4H PRN 11/25/20 11/25/20 aspirin 1 tab PO DAILY 11/25/20 11/25/20 atorvastatin 1 tab PO DAILY 11/25/20 11/25/20 clonidine HCl 1 tab PO BID 11/25/20 11/25/20 gabapentin 300 mg PO DAILY 11/25/20 11/25/20 gabapentin 600 mg PO BEDTIME 11/25/20 11/25/20 hydrochlorothiazide 1 tab PO DAILY 11/25/20 11/25/20 hydroxyzine HCl 1 tab PO BID 11/25/20 11/25/20 isosorbide mononitrate 1 tab PO DAILY 11/25/20 11/25/20 lisinopril 1 tab PO DAILY 11/25/20 11/25/20 omeprazole 1 cap PO DAILY 11/25/20 11/25/20 trazodone 1.5 tab PO BEDTIME PRN 11/25/20 11/25/20 Allergies Allergy/AdvReac Type Severity Reaction Status Date / Time nut - unspecified [NUTS] Allergy Severe ANAPHALAXSI Unverified 05/27/20 19:49 S tree nut Allergy Severe Anaphylaxis Verified 11/25/20 21:56 aspirin Allergy Mild none Verified 11/26/20 10:36 atorvastatin [ATORVASTATIN] Allergy Mild none Unverified 11/26/20 10:36 diphenhydramine Allergy Mild Rash Verified 11/25/20 21:54 [From Benadryl] pseudoephedrine Allergy Mild Rash Verified 11/25/20 21:53 acetaminophen Allergy Rash Verified 11/25/20 21:52 ibuprofen [From Motrin] Allergy Rash Verified 11/25/20 21:54 pistachio nut Allergy Anaphylaxis Verified 11/25/20 21:56 Review of Systems Review of Systems: Constitutional : No Weight loss, No Fever, No Chills ENT/Mouth : No sore throat, No Rhinorrhea Eyes: No Eye Pain, No Swelling Cardiovascular : ++ Chest Pain, no palpitations Respiratory : No Cough, No Sputum, no shortness of breath Gastrointestinal : no Nausea, No Vomiting, No Diarrhea, No abdominal Pain, no black stools Genitourinary : No Dysuria, No Urinary Frequency Musculoskeletal : No joint pain, No Myalgias, No Joint Swelling Skin : No Skin Lesions, No rash Neuro : No Weakness, No Numbness, No Dizziness, No Headache Psych : No Anxiety/Panic, No Depression Heme/Lymph: No Bruising, No Lymphadenopathy Endocrine : No Polyuria, No Polydipsia All other systems reviewed and are negative [facility] Past Medical History Medical History (Updated 11/28/20 @ 18:06 by Timmy Randhawa MD) Alcohol dependence CAD (coronary artery disease) Cocaine abuse Enteritis HTN (hypertension) Myocardial infarction Surgical History (Updated 11/28/20 @ 18:06 by Timmy Randhawa MD) S/P cardiac catheterization Social History Social History Household Members: Friend(s) Housing: Apartment Alcohol intake: former Smoking Status: Former smoker Use of substances other than those prescribed or required for medical reasons: Yes Substance Use Type: Crack/Cocaine Advance Directives: Yes Advance Directives on File: Yes Advance Directives Date on File: 11/25/20 service: No Current occupational status: unemployed Physical Exam Vital Signs: Vital Signs: Last Vital Signs Temp 98.1 F 11/28/20 17:42 Pulse 89 11/28/20 18:42 Resp 14 11/28/20 17:42 BP 141/87 H 11/28/20 18:42 Pulse Ox 97 11/28/20 17:42 Body Mass Index 29.2 Appearance: Alert. Oriented X3. No acute distress. Eyes: Pupils equal, round and reactive to light. ENT: Pharynx normal. Neck: Normal inspection. Neck supple. CVS: Normal heart rate and rhythm. Pulses normal. Respiratory: No respiratory distress. Breath sounds normal. Abdomen: Soft and nontender. Bowel sounds are present, no mass palpable, no CVA tenderness Skin: Skin warm and dry. Normal skin color. Normal skin turgor. Extremities: No lower extremity edema. Neuro: Oriented X 3. No motor deficit. No sensory deficit. MDM - Chest Pain MDM Narrative Medical decision making narrative: Patient with atypical chest pain recent cardiac catheterization negative on 11/[address] T wave changes, troponin stable. Patient has anxiety and feel anxiety may be contributing factor will discharge patient back to [place] Differential Diagnosis Differential diagnosis: Likely atypical chest pain Medical Records Data Attestation: I reviewed the patient's medical records. Lab Data Attestation: I reviewed the patient's lab results. Result diagrams: 11/28/20 18:25 11/28/20 18:24 Labs: Lab Results 11/28/20 11/28/20 11/28/20 Range/Units 18:24 18:24 18:24 WBC (4.8-10.8) X10*3/uL RBC (4.60-5.80) X10*6/uL Hgb (14.0-18.0) g/dl Hct (42-52) % MCV (80-98) fL MCH (27.0-33.0) pg MCHC (31.0-36.0) g/dl RDW (11.0-16.0) % Plt Count (160-400) X10*3/uL MPV (9.4-12.4) fL Immature Gran % (Auto) (0.0-0.4) % Neut % (Auto) (45-73) % Lymph % (Auto) (20-40) % [place] % (Auto) (2-11) % Eos % (Auto) (0-4) % Baso % (Auto) (0-2) % Lymph # (Auto) (1.2-4.9) X10*3/uL [place] # (Auto) (0.1-1.2) X10*3/uL Eos # (Auto) (0.0-0.4) X10*3/uL Baso # (Auto) (0.0-0.2) X10*3/uL Abs Immat Gran (auto) (0.00-0.03) X10*3/uL Absolute Neuts (auto) (2.0-8.3) X10*3/uL Absolute Nucleated RBC (0.0-0.012) X10*3/uL Nucleated RBC % (auto) (0.0-0.2) /100WBC PT 12.6 (10.8-13.0) SEC INR 1.1 (0.9-1.1) Sodium 142 (135-145) mmol/L Potassium 3.9 (3.3-5.1) mmol/L Chloride 106 (96-108) mmol/L Carbon Dioxide 22 (22-29) mmol/L Anion Gap 18 (12-20) BUN 13 (9-16) mg/dL Creatinine 1.43 H (0.5-1.4) mg/dL Estim Creat Clear Calc 70.3 Estimated GFR 52 Random Glucose 131 H (60-115) mg/dL Calcium 9.5 (8.4-10.2) mg/dL Troponin I High Sens 18.8 (<3.5-35.0) ng/L 03// Range/Units 18:25 WBC 3.5 L (4.8-10.8) X10*3/uL RBC 4.62 (4.60-5.80) X10*6/uL Hgb 13.7 L (14.0-18.0) g/dl Hct 40.3 L (42-52) % MCV 87.2 (80-98) fL MCH 29.7 (27.0-33.0) pg MCHC 34.0 (31.0-36.0) g/dl RDW 13.1 (11.0-16.0) % Plt Count 254 (160-400) X10*3/uL MPV 8.4 L (9.4-12.4) fL Immature Gran % (Auto) 0.0 (0.0-0.4) % Neut % (Auto) 49.9 (45-73) % Lymph % (Auto) 34.8 (20-40) % Carl[place] % (Auto) 11.8 H (2-11) % Eos % (Auto) 2.6 (0-4) % Baso % (Auto) 0.9 (0-2) % Lymph # (Auto) 1.2 (1.2-4.9) X10*3/uL [place] # (Auto) 0.4 (0.1-1.2) X10*3/uL Eos # (Auto) 0.1 (0.0-0.4) X10*3/uL Baso # (Auto) 0.0 (0.0-0.2) X10*3/uL Abs Immat Gran (auto) 0.00 (0.00-0.03) X10*3/uL Absolute Neuts (auto) 1.7 L (2.0-8.3) X10*3/uL Absolute Nucleated RBC 0.000 (0.0-0.012) X10*3/uL Nucleated RBC % (auto) 0.0 (0.0-0.2) /100WBC PT (10.8-13.0) SEC INR (0.9-1.1) Sodium (135-145) mmol/L Potassium (3.3-5.1) mmol/L Chloride (96-108) mmol/L Carbon Dioxide (22-29) mmol/L Anion Gap (12-20) BUN (9-16) mg/dL Creatinine (0.5-1.4) mg/dL Estim Creat Clear Calc Estimated GFR Random Glucose (60-115) mg/dL Calcium (8.4-10.2) mg/dL Troponin I High Sens (<3.5-35.0) ng/L Discharge Plan Discharge Prescriptions: No Action clonidine HCl 0.1 mg tablet 1 tab PO BID RF: 0 isosorbide mononitrate 30 mg tablet extended release 24 hr 1 tab PO DAILY RF: 0 hydroxyzine HCl 50 mg tablet 1 tab PO BID RF: 0 aspirin 81 mg tablet,delayed release (DR/EC) 1 tab PO DAILY RF: 0 trazodone 100 mg tablet 1.5 tab PO BEDTIME PRN (Reason: Insomnia) RF: 0 omeprazole 20 mg capsule,delayed release(DR/EC) 1 cap PO DAILY RF: 0 hydrochlorothiazide 25 mg tablet 1 tab PO DAILY RF: 0 albuterol sulfate 90 mcg/actuation HFA aerosol inhaler 2 puff inhalation Q4H PRN (Reason: wheezing) RF: 0 atorvastatin 80 mg tablet 1 tab PO DAILY RF: 0 gabapentin 300 mg capsule 300 mg PO DAILY RF: 0 gabapentin 300 mg Capsule 600 mg PO BEDTIME RF: 0 lisinopril 40 mg tablet 1 tab PO DAILY RF: 0
[2020-11-28 18:30] LABS: MANUAL DIFF FLAG NO
[2020-11-28 18:31] LABS: Basophils Percent Auto 0.9 % (0-2); Eosinophils Absolute Auto 0.1 X10*3/uL (0.0-0.4); Eosinophils Percent Auto 2.6 % (0-4); Hematocrit 40.3 % (42-52); Hemoglobin 13.7 g/dl (14.0-18.0); Lymphocytes Absolute Auto 1.2 X10*3/uL (1.2-4.9); Lymphocytes Percent Auto 34.8 % (20-40); Mean Corpuscular Hemoglobin 29.7 pg (27.0-33.0); Mean Corpuscular Volume 87.2 fL (80-98); Mean Platelet Volume 8.4 fL (9.4-12.4); Monocytes Absolute Auto 0.4 X10*3/uL (0.1-1.2); Monocytes Percent Auto 11.8 % (2-11); Neutrophils Absolute Auto 1.7 X10*3/uL (2.0-8.3); Neutrophils Percent Auto 49.9 % (45-73); Platelet Count 254 X10*3/uL (160-400); Red Blood Count 4.62 X10*6/uL (4.60-5.80); Red Cell Distribution Width 13.1 % (11.0-16.0); White Blood Count 3.5 X10*3/uL (4.8-10.8)
[2020-11-28 18:36] LABS: INTERNATIONAL NORM RATIO 1.1 (0.9-1.1); Prothrombin Time 12.6 SEC (10.8-13.0)
[2020-11-28 18:42] VITALS: BP 141/87; PULSE 89
[2020-11-28] MEDS: Nitroglycerin 2 % Oint 1 GM Packet 0.5 INCH TRANSDERMA (18:42)
--- NOTE | 2020-11-28 18:48 | PC.NURSE ---
Pt found sitting upright in bed, reporting 10/10 pain to center of chest. Pt medicated with Nitro paste, refusing Tylenol at this time, states I am allergic to Tylenol, it gives me a horrible skin rash. MD aware. VSS at this time. Continue to monitor.
[2020-11-28 18:54] LABS: Anion Gap 18 (12-20); Blood Urea Nitrogen 13 mg/dL (9-16); Calcium 9.5 mg/dL (8.4-10.2); Carbon Dioxide 22 mmol/L (22-29); Chloride 106 mmol/L (96-108); Creatinine Clr Calc Pharmacy 70.3; Estimated Glomerular Filt Rate 52; Glucose Random 131 mg/dL (60-115); Potassium 3.9 mmol/L (3.3-5.1); Sodium 142 mmol/L (135-145)
[2020-11-28 19:01] LABS: Troponin-I High Sensitivity 18.8 ng/L (<3.5-35.0)
[2020-11-28] MEDS: LORazepam 1 MG TABLET 2 MG PO (19:40)
--- NOTE | 2020-11-28 19:44 | PC.NURSE ---
Pt ready for discharge to return to [facility]. This RN calling [facility], per RN [facility], [facility] is unable to accept pt until 1000 tomorrow. [facility] states the doctors leave @ 1700 and won't come in for admission assessments. Per [facility], they will hold his bed but unable to accept pt until tomorrow. Per [facility], [facility] Jess Moore to be called if [facility] is unable to hold pt until morning, . hydroelectric station operator chief aware.
--- NOTE | 2020-11-28 20:20 | PC.NURSE ---
[facility] calling from [facility] again, per [facility], [facility] requesting all of pts paperwork to review by [facility] before accepting pt back into facility. idea worker aware.
[2020-11-28 23:36] VITALS: BP 144/94; PULSE 76; RESP 18; TEMP 36.5; O2SAT 98
[2020-11-29 01:35] VITALS: RESP 18
--- NOTE | 2020-11-29 07:31 | PC.NURSE ---
nad, attempt made to call [facility], no answer on the unit, pt eating breakfast
--- NOTE | 2020-11-29 08:59 | PC.NURSE ---
per ngozi at [facility], pt can return for 1145 will call back w any issues
--- NOTE | 2020-11-29 11:00 | MHC.RECOVRN ---
T/w met with pt to inform him that [facility] is not willing to accept pt back to [facility] due to liability . director global market research at [facility], Dr. Burnham, had reviewed pts medical documents and decided pt is not appropriate for [facility]. Pt frustrated as he was told last night that his bed was being held. Pt was provided resources for recovery as well as t/w card. Pt denies questions or concerns for t/w.
[2020-11-29 11:08] VITALS: BP 184/126; PULSE 77; RESP 18; O2SAT 95
--- NOTE | 2020-11-29 11:12 | PC.NURSE ---
Pt just found out that detox program is not accepting him back as the program feels that re-admission is not medically indicated at this time. PT is upset but understands. BP elevated but pt did not recoeve home medications this morning. He states that his BP often runs high. Plan is to DC home and for him to take home BP medications as well as explore provided resources to him to remain ETOH free.
== END 2020-11-29 11:28 | disposition home or self-care (01) ==
PROVIDERS: Emergency Provider Internal Medicine
DX: R07.89 Other chest pain (principal); I10 Essential (primary) hypertension; F10.20 Alcohol dependence, uncomplicated; Y90.9 Presence of alcohol in blood, level not specified; F14.10 Cocaine abuse, uncomplicated; I25.2 Old myocardial infarction; Z87.891 Personal history of nicotine dependence
CPT/HCPCS: 36415; 71045; 80048; 84484; 85025; 85610; 93005; 99285

== ENCOUNTER 2021-12-17 16:12 | Emergency (ER) | payer OTHER, SELFPAY ==
--- NOTE | ~2021-12-17 | CT_ITS ---
EXAMINATION: CT ABDOMEN AND PELVIS WITH CONTRAST CLINICAL INFORMATION: Diffuse abdominal pain, vomiting COMPARISON: CT abdomen pelvis 11/24/2020 TECHNIQUE: Multidetector volumetric images were obtained from the superior aspect of the liver through the pubic symphysis following administration 85 mL of Omnipaque 350 intravenous contrast. Sagittal and coronal reformatted images were obtained on the technologist's workstation. Oral contrast: No This CT examination was performed using dose optimization techniques as appropriate, variously including the following: *Automated exposure control *Adjustment of mA and/or kV according to patient size (this includes techniques or standardized protocols for targeted exams where dose is matched to indication/reason for exam; i.e. extremities or head) *Use of iterative reconstruction technique DLP: 687 mGy-cm FINDINGS: LUNG BASES: Unremarkable. ABDOMINAL AND PELVIC WALL: Small fat-containing umbilical hernia. LIVER AND BILIARY TREE: Focal fat along the falciform ligament. Stable 2.2 cm liver lesion with discontinuous peripheral nodular enhancement compatible with a hemangioma. GALLBLADDER: Unremarkable. PANCREAS: Unremarkable. SPLEEN: Unremarkable. ADRENAL GLANDS: Unremarkable. KIDNEYS AND URETERS: Unremarkable. GASTROINTESTINAL TRACT: Small hiatal hernia. Incidentally noted gastric diverticulum. Wall thickening involving the gastric antrum and first portion of the duodenum new from prior. Multiple thick-walled loops of small bowel in the left upper and lower abdomen in a similar morphology to prior however with longer segment loops of small bowel involved with perienteric inflammatory fat stranding and intramesenteric loop free fluid. No loss of bowel wall enhancement. The appendix is nondilated without wall thickening and is gas-filled. VASCULAR: Unremarkable. LYMPH NODES/PERITONEUM: No lymphadenopathy. FREE FLUID: Small volume free fluid in the pelvis along the paracolic gutters. BLADDER: Urinary bladder is under distended limiting evaluation. PELVIC VISCERA: Unremarkable. OSSEOUS STRUCTURES: Unremarkable. CT/CT abdomen pelvis w con IMPRESSION: Multiple thick-walled loops of small bowel in the left upper and lower abdomen in a similar morphology to prior however with longer segment loops of small bowel involved with perienteric inflammatory fat stranding and intramesenteric loop free fluid and small volume free fluid in the pelvis. Wall thickening involving the gastric antrum and first portion of the duodenum new from prior. Collectively constellation of findings raises suspicion for gastroenteritis, which given chronicity of the small bowel loops may be inflammatory in etiology such as in the setting of Crohn's disease. Consider GI referral if not already obtained.
[2021-12-17 16:16] VITALS: BP 160/130; PULSE 74
--- NOTE | 2021-12-17 16:21 | PC.NURSE ---
Report recived from [facility] who states there for detox but reports diffuse abd pain, last Ativan admin 0200 for withdrawal. Withdrawal from ETOH and cocaine. [facility] states they will accept pt back after discharge if bed is available
--- NOTE | 2021-12-17 16:28 | ED.ABDPAIN ---
HPI - Abdominal Pain General Chief Complaint: Abdominal Pain Stated Complaint: ABD PAIN W/VOMITING,? ETOH WITHDRAWAL PER EMS Time Seen by Provider: 12/17/21 16:24 Source: patient and EMS Mode of arrival: EMS Limitations: no limitations History of Present Illness HPI narrative: 56 yo male coming from [facility] with history of CAD, HTN, alcohol abuse disorder here with complaints of abdominal pain, vomiting since last evening. Patient reports he is there for detox from cocaine and alcohol where he has been for 4 days. No diarrhea, urinary symptoms, fevers, chills. Related Data Home Medications Medication Instructions Recorded Confirmed albuterol sulfate 90 mcg/actuation 2 puff INHALATION Q4H PRN 11/25/20 11/25/20 aerosol inhaler aspirin 81 mg tablet,delayed 1 tab PO DAILY 11/25/20 11/25/20 release atorvastatin 80 mg tablet 1 tab PO DAILY 11/25/20 11/25/20 clonidine HCl 0.1 mg tablet 1 tab PO BID 11/25/20 11/25/20 gabapentin 300 mg capsule 300 mg PO DAILY 11/25/20 11/25/20 gabapentin 300 mg capsule 600 mg PO BEDTIME 11/25/20 11/25/20 hydrochlorothiazide 25 mg tablet 1 tab PO DAILY 11/25/20 11/25/20 hydroxyzine HCl 50 mg tablet 1 tab PO BID 11/25/20 11/25/20 isosorbide mononitrate 30 mg 1 tab PO DAILY 11/25/20 11/25/20 tablet,extended release 24 hr lisinopril 40 mg tablet 1 tab PO DAILY 11/25/20 11/25/20 omeprazole 20 mg capsule,delayed 1 cap PO DAILY 11/25/20 11/25/20 release trazodone 100 mg tablet 1.5 tab PO BEDTIME PRN 11/25/20 11/25/20 Previous Rx's Medication Instructions Recorded ondansetron 4 mg disintegrating 4 mg PO Q6H PRN #14 tab 12/17/21 tablet oxycodone 5 mg tablet 5 mg PO Q6H PRN #8 tab 12/17/21 Allergies Allergy/AdvReac Type Severity Reaction Status Date / Time nut - unspecified [NUTS] Allergy Severe ANAPHALAXSI Verified 12/17/21 16:34 S tree nut Allergy Severe Anaphylaxis Verified 11/25/20 21:56 aspirin Allergy Mild none Verified 11/26/20 10:36 atorvastatin [ATORVASTATIN] Allergy Mild none Unverified 11/26/20 10:36 diphenhydramine Allergy Mild Rash Verified 11/25/20 21:54 [From Benadryl] pseudoephedrine Allergy Mild Rash Verified 11/25/20 21:53 acetaminophen Allergy Rash Verified 11/25/20 21:52 ibuprofen [From Motrin] Allergy Rash Verified 11/25/20 21:54 pistachio nut Allergy Anaphylaxis Verified 11/25/20 21:56 Review of Systems Review of Systems Yes all other systems are reviewed and are negative Constitutional: Reports no additional constitutional complaints, Denies body ache(s), Denies chills, Denies fever(s), Denies headache(s) and Denies weakness Eyes: Reports no additional eye complaints and Denies change in vision Reports system reviewed and no additional complaints, except as documented, Denies dizziness, Denies headache(s), Denies nasal congestion, Denies nasal discharge and Denies neck pain Cardiovascular: Reports no additional cardiovascular complaints, Denies chest pain, Denies leg edema and Denies dyspnea Respiratory: Reports no additional respiratory complaints, Denies cough and Denies dyspnea Gastrointestinal: Reports no additional gastrointestinal complaints, Reports abdominal pain, Denies diarrhea, Reports nausea and Reports vomiting Genitourinary: Denies urinary incontinence Musculoskeletal: Reports no additional musculoskeletal complaints, Denies back pain, Denies arthralgias, Denies joint swelling, Denies neck pain, Denies numbness and Denies tingling Skin/Breast: Reports system reviewed and no additional complaints, except as docu and Denies rash Reports system reviewed and no additional complaints, except as documented, Denies dizziness, Denies headache(s), Denies numbness, Denies tingling and Denies weakness [facility] Past Medical History Medical History (Updated 12/17/21 @ 19:52 by Diane Alanis NP) Alcohol dependence CAD (coronary artery disease) Cocaine abuse Enteritis HTN (hypertension) Myocardial infarction Surgical History (Updated 11/28/20 @ 18:06 by Timmy Ríos MD) S/P cardiac catheterization Social History Social History Household Members: Friend(s) Housing: Apartment Do you presently have visiting nurse or other home services: No Alcohol intake: former Substance Use Type: Crack/Cocaine Advance Directives: Yes Advance Directives on File: Yes Advance Directives Date on File: 11/25/20 service: No Current occupational status: unemployed Physical Exam ED Vital Signs: Vital Signs - 24 hr 12/17/21 16:29 12/17/21 18:00 Temperature 98.3 F 98.2 F Pulse Rate 89 100 Respiratory Rate 20 18 Blood Pressure 105/73 97/66 Pulse Oximetry 94 96 BMI result Body Mass Index 28.3 Const General: cooperative, healthy appearing, comfortable and no acute distress Orientation/consciousness: patient oriented x3 Limitations: no limitations HENMT Head: Yes normal to inspection Ears: hearing grossly normal bilaterally General nose exam: Normal external nose present Face and sinus: Yes normal facial exam Mouth: Normal oral and palatal mucosa present Teeth and gingiva: dentition normal Throat: Yes posterior oropharynx normal, Yes tonsils normal and Yes uvula midline Eyes General: appearance normal, both eyes and all related structures Pupils: Equal, round and reactive pupils present Neck Neck: Yes normal visual inspection, Yes full ROM, Yes no lymphadenopathy and Yes no meningeal signs Chest Chest palpation & inspection: normal inspection of the chest Resp Effort & Inspection: normal respiratory effort Auscultation: clear to auscultation bilaterally Cardio Rate: regular rate Rhythm: regular rhythm Peripheral pulses: Peripheral pulses 2+ throughout GI Inspection: Yes normal to inspection Palpation (GI): Soft to palpation and Tenderness to palpation present (GI) (diffusely tender with guarding ) General: Yes Bimanual renal exam normal bilaterally and Yes no CVA tenderness Back/Spine/Pelvis Back: no CVA tenderness Skin General skin exam: no rashes or lesions noted Neuro General: patient oriented x3, moves all extremities and no meningeal signs Cranial nerves: Yes Equal, round and reactive pupils present Extrem General: Yes normal to inspection, Yes no pedal edema and Yes no calf tenderness Course Course Course Narrative: 56-year-old male coming from a review store he currently is for detox from alcohol and cocaine here with reports of generalized abdominal pain with vomiting since last evening. On exam patient has diffuse tenderness with guarding. Will check labs, UA, CT, covid/flu testing, will give antiemetic/analgesia/NSB Reevaluation(s) Reevaluation #1: CT shows IMPRESSION: ? Multiple thick-walled loops of small bowel in the left upper and lower abdomen in a similar morphology to prior however with longer segment loops of small bowel involved with perienteric inflammatory fat stranding and intramesenteric loop free fluid and small volume free fluid in the pelvis. Wall thickening involving the gastric antrum and first portion of the duodenum new from prior. Collectively constellation of findings raises suspicion for gastroenteritis, which given chronicity of the small bowel loops may be inflammatory in etiology such as in the setting of Crohn's disease. Consider GI referral if not already obtained. ? -may be cocaine induced. Patient having some continued pain but denies nausea. Discussed findings with the patient. He tells me he wants to go home. He does not want to return to [facility] to continue his detox for alcohol/cocaine. I offered admission and he declined this. He feels well enough to go home. I did tell the patient that he should follow-up with GI for resolution of his CT findings. Also I cannot rule out any underlying inflammatory condition. Patient is aware of this and he will follow up with GI. Reviewed worrisome signs and symptoms of when to return to the emergency department. Comfortable discharge home. Time: 19:40 MDM - Abdominal Pain Differential Diagnosis Differential diagnosis: Likely gastritis and pancreatitis Medical Records Attestation: I reviewed the patient's medical records. Lab Data Attestation: I reviewed the patient's lab results. Result diagrams: 12/17/21 16:51 12/17/21 16:51 Labs: Lab Results 12/17/21 12/17/21 12/17/21 Range/Units 16:51 16:51 16:51 WBC 7.6 (4.8-10.8) X10*3/uL RBC 6.03 H (4.60-5.80) X10*6/uL Hgb 18.7 H (14.0-18.0) g/dl Hct 53.9 H (42.0-52.0) % MCV 89.4 (80.0-98.0) fL MCH 31.0 (27.0-33.0) pg MCHC 34.7 (31.0-36.0) g/dl RDW 13.2 (11.0-16.0) % Plt Count 194 (160-400) X10*3/uL MPV 9.4 (9.4-12.4) fL Immature Gran % (Auto) 0.4 (0.0-0.4) % Neut % (Auto) 75.1 H (45-73) % Lymph % (Auto) 15.3 L (20-40) % Hendricks % (Auto) 6.7 (2-11) % Eos % (Auto) 2.1 (0-4) % Baso % (Auto) 0.4 (0-2) % Lymph # (Auto) 1.2 (1.2-4.9) X10*3/uL Hendricks # (Auto) 0.5 (0.1-1.2) X10*3/uL Eos # (Auto) 0.2 (0.0-0.4) X10*3/uL Baso # (Auto) 0.0 (0.0-0.2) X10*3/uL Abs Immat Gran (auto) 0.03 (0.00-0.03) X10*3/uL Absolute Neuts (auto) 5.7 (2.0-8.3) x10*3/uL Absolute Nucleated RBC 0.000 (0.0-0.012) X10*3/uL Nucleated RBC % (auto) 0.0 (0.0-0.2) /100WBC Sodium 140 (135-145) mmol/L Potassium 3.8 (3.3-5.1) mmol/L Chloride 104 (96-108) mmol/L Carbon Dioxide 23 (22-29) mmol/L Anion Gap 17 (12-20) BUN 16 (9-16) mg/dL Creatinine 1.45 H (0.5-1.4) mg/dL Estim Creat Clear Calc 67.5 Estimated GFR 51 Random Glucose 172 H (60-115) mg/dL Calcium 10.1 D (8.4-10.2) mg/dL Magnesium 1.8 (1.6-2.6) mg/dL Total Bilirubin 0.7 (0.0-1.0) mg/dL Direct Bilirubin 0.3 (0.0-0.5) mg/dL AST 46 H D (5-37) U/L ALT 47 H (0-40) U/L Alkaline Phosphatase 66 (39-117) U/L Total Protein 6.6 (6.5-8.0) g/dL Albumin 4.1 (3.5-5.0) g/dL Lipase 56 (8-78) U/L Urine Color Urine Appearance Urine pH (5.0-8.0) Ur Specific [employer] [place] (1.005-1.025) Urine Protein (NEG-TRACE) MG/DL Urine Glucose (UA) (NEG) MG/DL Urine Ketones (NEG) MG/DL Urine Blood (NEG) Urine Nitrite (NEG) Ur Leukocyte Esterase (NEG) Urine RBC (0) /HPF Urine WBC (0-4) /HPF Ur Squamous Epith Cells /LPF Urine Bacteria /LPF Hyaline Casts /LPF Urine Mucus /LPF COVID-19 ([facility]IE) (Negative) COVID-19 Clin Com Influenza Type A ([facility]) Negative (Negative) Influenza Type B ([facility]) Negative (Negative) Influenza A & B Note See Note 12/17/21 12/17/21 Range/Units 16:51 18:25 WBC (4.8-10.8) X10*3/uL RBC (4.60-5.80) X10*6/uL Hgb (14.0-18.0) g/dl Hct (42.0-52.0) % MCV (80.0-98.0) fL MCH (27.0-33.0) pg MCHC (31.0-36.0) g/dl RDW (11.0-16.0) % Plt Count (160-400) X10*3/uL MPV (9.4-12.4) fL Immature Gran % (Auto) (0.0-0.4) % Neut % (Auto) (45-73) % Lymph % (Auto) (20-40) % Hendricks % (Auto) (2-11) % Eos % (Auto) (0-4) % Baso % (Auto) (0-2) % Lymph # (Auto) (1.2-4.9) X10*3/uL Hendricks # (Auto) (0.1-1.2) X10*3/uL Eos # (Auto) (0.0-0.4) X10*3/uL Baso # (Auto) (0.0-0.2) X10*3/uL Abs Immat Gran (auto) (0.00-0.03) X10*3/uL Absolute Neuts (auto) (2.0-8.3) x10*3/uL Absolute Nucleated RBC (0.0-0.012) X10*3/uL Nucleated RBC % (auto) (0.0-0.2) /100WBC Sodium (135-145) mmol/L Potassium (3.3-5.1) mmol/L Chloride (96-108) mmol/L Carbon Dioxide (22-29) mmol/L Anion Gap (12-20) BUN (9-16) mg/dL Creatinine (0.5-1.4) mg/dL Estim Creat Clear Calc Estimated GFR Random Glucose (60-115) mg/dL Calcium (8.4-10.2) mg/dL Magnesium (1.6-2.6) mg/dL Total Bilirubin (0.0-1.0) mg/dL Direct Bilirubin (0.0-0.5) mg/dL AST (5-37) U/L ALT (0-40) U/L Alkaline Phosphatase (39-117) U/L Total Protein (6.5-8.0) g/dL Albumin (3.5-5.0) g/dL Lipase (8-78) U/L Urine Color YELLOW Urine Appearance CLEAR Urine pH 6.0 (5.0-8.0) Ur Specific [employer] [place] 1.025 (1.005-1.025) Urine Protein 1+ H (NEG-TRACE) MG/DL Urine Glucose (UA) NEG (NEG) MG/DL Urine Ketones 5 (NEG) MG/DL Urine Blood NEG (NEG) Urine Nitrite NEG (NEG) Ur Leukocyte Esterase NEG (NEG) Urine RBC 0 (0) /HPF Urine WBC 0 (0-4) /HPF Ur Squamous Epith Cells TRACE /LPF Urine Bacteria NONE /LPF Hyaline Casts 10-14 /LPF Urine Mucus 1+ /LPF COVID-19 ([facility]ATHALIE) Negative (Negative) COVID-19 Clin Com See Note Influenza Type A ([facility]) (Negative) Influenza Type B ([facility]) (Negative) Influenza A & B Note Imaging Data CT scan - abdomen: Attestation: I personally reviewed and interpreted this imaging study as follows: Radiologist's impression: IMPRESSION: ? Multiple thick-walled loops of small bowel in the left upper and lower abdomen in a similar morphology to prior however with longer segment loops of small bowel involved with perienteric inflammatory fat stranding and intramesenteric loop free fluid and small volume free fluid in the pelvis. Wall thickening involving the gastric antrum and first portion of the duodenum new from prior. Collectively constellation of findings raises suspicion for gastroenteritis, which given chronicity of the small bowel loops may be inflammatory in etiology such as in the setting of Crohn's disease. Consider GI referral if not already obtained. ? ECG Data Attestation: I personally reviewed and interpreted this ECG as follows: ECG interpretation date: 12/17/21 ECG interpretation time: 17:13 Interpretation: Sinus tachycardia with a rate of 138, normal MI, normal QRS, normal QT Discharge Plan Discharge Clinical Impression: Gastroenteritis Patient Disposition: Home, Self-Care Instructions: Gastroenteritis (DC) Additional Instructions: Your CT scan shows what appears to be inflammation consistent with gastroenteritis. This can be from cocaine use. However, you may have underlying inflammation and so you need to follow-up with a director of outside sales to have a colonoscopy done Start with clear liquids and advance diet as tolerated Return for severe pain, vomiting, fever Prescriptions: New oxycodone 5 mg tablet 5 mg PO Q6H PRN (Reason: pain) Qty: 8 0RF ondansetron 4 mg tablet,disintegrating 4 mg PO Q6H PRN (Reason: nausea and vomiting) Qty: 14 0RF No Action clonidine HCl 0.1 mg tablet 1 tab PO BID 0RF isosorbide mononitrate 30 mg tablet extended release 24 hr 1 tab PO DAILY 0RF hydroxyzine HCl 50 mg tablet 1 tab PO BID 0RF aspirin 81 mg tablet,delayed release (DR/EC) 1 tab PO DAILY 0RF trazodone 100 mg tablet 1.5 tab PO BEDTIME PRN (Reason: Insomnia) 0RF omeprazole 20 mg capsule,delayed release(DR/EC) 1 cap PO DAILY 0RF hydrochlorothiazide 25 mg tablet 1 tab PO DAILY 0RF albuterol sulfate 90 mcg/actuation HFA aerosol inhaler 2 puff inhalation Q4H PRN (Reason: wheezing) 0RF atorvastatin 80 mg tablet 1 tab PO DAILY 0RF gabapentin 300 mg capsule 300 mg PO DAILY 0RF gabapentin 300 mg Capsule 600 mg PO BEDTIME 0RF lisinopril 40 mg tablet 1 tab PO DAILY 0RF Referrals: Gavin Troy MD [Physician] - Interventions: ED Discharge Assessment Last Done: 12/17/21 20:24 Discharge Date/Time: 12/17/21 20:24
[2021-12-17 16:29] VITALS: BP 105/73; PULSE 89; RESP 20; TEMP 36.8; O2SAT 94; BMI 28.3
--- NOTE | 2021-12-17 16:34 | ECG_ITS ---
Test Reason : ABDOMINAL PAIN Blood Pressure : / mmHG Vent. Rate : 138 BPM Atrial Rate : 138 BPM P-R Int : 136 ms QRS Dur : 080 ms QT Int : 298 ms P-R-T Axes : 042 -38 058 degrees QTc Int : 451 ms Sinus tachycardia Left axis deviation Minimal voltage criteria for LVH, may be normal variant ( Dre product ) Abnormal ECG When compared with ECG of 28-NOV-2020 18:15, T wave inversion no longer evident in Anterior leads Referred By: Diane Alanis Electronically Signed By:QUINTIN DORMAN MD
[2021-12-17 16:56] LABS: MANUAL DIFF FLAG NO
[2021-12-17 16:59] LABS: Basophils Percent Auto 0.4 % (0-2); Eosinophils Absolute Auto 0.2 X10*3/uL (0.0-0.4); Eosinophils Percent Auto 2.1 % (0-4); Hematocrit 53.9 % (42.0-52.0); Hemoglobin 18.7 g/dl (14.0-18.0); Imm Gran Abs Auto 0.03 X10*3/uL (0.00-0.03); Imm Gran Pct Auto 0.4 % (0.0-0.4); Lymphocytes Absolute Auto 1.2 X10*3/uL (1.2-4.9); Lymphocytes Percent Auto 15.3 % (20-40); Mean Corpuscular HGB Conc 34.7 g/dl (31.0-36.0); Mean Corpuscular Volume 89.4 fL (80.0-98.0); Mean Platelet Volume 9.4 fL (9.4-12.4); Monocytes Absolute Auto 0.5 X10*3/uL (0.1-1.2); Monocytes Percent Auto 6.7 % (2-11); Neutrophils Absolute Auto 5.7 x10*3/uL (2.0-8.3); Neutrophils Percent Auto 75.1 % (45-73); Platelet Count 194 X10*3/uL (160-400); Red Blood Count 6.03 X10*6/uL (4.60-5.80); Red Cell Distribution Width 13.2 % (11.0-16.0); White Blood Count 7.6 X10*3/uL (4.8-10.8)
[2021-12-17 17:14] LABS: COVID-19 Test Negative (Negative); IDNOW Serial# 16C4AD1C; Influenza A Negative (Negative); Influenza B2 Negative (Negative)
[2021-12-17 17:24] LABS: Alanine Aminotransferase 47 U/L (0-40); Albumin Level 4.1 g/dL (3.5-5.0); Alkaline Phosphatase 66 U/L (39-117); Anion Gap 17 (12-20); Aspartate Amino Transferase 46 U/L (5-37); Bilirubin Direct 0.3 mg/dL (0.0-0.5); Bilirubin Total 0.7 mg/dL (0.0-1.0); Blood Urea Nitrogen 16 mg/dL (9-16); Calcium 10.1 mg/dL (8.4-10.2); Carbon Dioxide 23 mmol/L (22-29); Chloride 104 mmol/L (96-108); Creatinine Clr Calc Pharmacy 67.5; Estimated Glomerular Filt Rate 51; Glucose Random 172 mg/dL (60-115); Lipase 56 U/L (8-78); Magnesium 1.8 mg/dL (1.6-2.6); Potassium 3.8 mmol/L (3.3-5.1); Sodium 140 mmol/L (135-145); Total Protein 6.6 g/dL (6.5-8.0)
[2021-12-17] MEDS: Morphine Sulfate 4 MG/ML CARTRIDGE IVPUSH ×2 (17:32→20:08)
[2021-12-17] MEDS: 0.9 % Sodium Chloride 1,000 ML 999 ML IV (17:32)
[2021-12-17] MEDS: ondansetron HCL 4 MG/2 ML VIAL IVPUSH (17:32)
--- NOTE | 2021-12-17 17:36 | PC.NURSE ---
claudio a&ox3, iv inserted, labs drawn, ekg performed, pt medicated per order, call mendoza within reach, will continue to monitor.
[2021-12-17 18:00] VITALS: BP 97/66; PULSE 100; RESP 18; TEMP 36.8; O2SAT 96
[2021-12-17] MEDS: iohexoL 350 MG/ML 100 ML INFUS..BTL IV (18:06)
--- NOTE | 2021-12-17 18:30 | PC.NURSE ---
urine obtained per order
[2021-12-17 18:51] LABS: Appearance Urine CLEAR; Color Urine YELLOW; Glucose Urine UA NEG (NEG); Leukocyte Esterase Urine NEG (NEG); Nitrite Urine NEG (NEG); Specific Gravity - Urine 1.025 (1.005-1.025); UACC Culture Trigger NO; Urine Blood NEG (NEG); Urine Ketones 5 MG/DL (NEG); Urine Protein 1+ MG/DL (NEG-TRACE)
[2021-12-17 19:00] LABS: Mucus Urine 1+ /LPF; RBC Urine 0 /HPF (0); Squamous Epithelial Cell Urine TRACE /LPF; WBC Urine 0 /HPF (0-4)
--- NOTE | 2021-12-17 19:04 | PC.NURSE ---
Took report from Samantha to assume care of PT, Pt resting comfortably, on soil specialist, Pt needs met at this time, call light in reach, this RN continues to monitor.
== END 2021-12-17 20:24 | disposition home or self-care (01) ==
PROVIDERS: Nurse Practitioner Family; Emergency Provider Internal Medicine
DX: K52.9 Noninfective gastroenteritis and colitis, unspecified (principal); Z20.822 Contact with and (suspected) exposure to COVID-19; R10.9 Unspecified abdominal pain; F14.10 Cocaine abuse, uncomplicated; F10.20 Alcohol dependence, uncomplicated; Y90.9 Presence of alcohol in blood, level not specified; I10 Essential (primary) hypertension; Z79.82 Long term (current) use of aspirin; Z79.02 Long term (current) use of antithrombotics/antiplatelets; Z79.899 Other long term (current) drug therapy
CPT/HCPCS: 36415; 74177; 80048; 80076; 81001; 83690; 83735; 85025; 87502; 87635; 93005; 96361; 96374; 96375; 96376; 99284; J2270; J2405; Q9967

== ENCOUNTER 2023-06-26 18:42 | Emergency (ER) | payer OTHER, SELFPAY ==
--- NOTE | ~2023-06-26 | XR_ITS ---
EXAMINATION: XR SHOULDER, RIGHT CLINICAL INFORMATION: Status post fall COMPARISON: None available. TECHNIQUE: Three views of the right shoulder. FINDINGS: No acute visible fracture or dislocation. Degenerative arthropathy of the glenohumeral and acromioclavicular joint. Joint space alignment are otherwise maintained. Visualized portions of the right chest are unremarkable. XR/XR shoulder RT min 2V IMPRESSION: 1. No acute visible fracture or dislocation. 2. Degenerative arthropathy of the glenohumeral and acromioclavicular joint.
--- NOTE | 2023-06-26 18:53 | ECG_ITS ---
Test Reason : CP Blood Pressure : / mmHG Vent. Rate : 102 BPM Atrial Rate : 102 BPM P-R Int : 164 ms QRS Dur : 098 ms QT Int : 358 ms P-R-T Axes : 053 -16 038 degrees QTc Int : 466 ms Sinus tachycardia with occasional Premature ventricular complexes Otherwise normal ECG When compared with ECG of 17-DEC-2021 17:13, Premature ventricular complexes are now Present Heart rate has decreased Referred By: Generic ED Physician Electronically Signed By:RADHA ALICIA MD
[2023-06-26 18:58] VITALS: BP 193/119; BP 206/103; PULSE 100; PULSE 106; RESP 18; TEMP 36.9; O2SAT 92; O2SAT 94; BMI 34.4
--- NOTE | 2023-06-26 19:00 | ED.CHESTPAIN ---
HPI - Chest Pain General Chief Complaint: Chest Pain Stated Complaint: CHEST PAIN, HYPERTENSION Time Seen by Provider: 06/26/23 18:56 Source: patient Mode of arrival: ambulatory Limitations: no limitations History of Present Illness HPI narrative: Patient history of cocaine abuse clear for 4 months had cardiac catheterization about 1 yr ago which was negative history of hypertension anxiety and depression comes here for bilateral chest pain headache body aches for last 3 days no significant shortness of breath no diaphoresis denies any use of cocaine no fever no chills. Patient is on hydrochlorothiazide 25 mg daily blood pressure on arrival was 184/123 with pulse rate of 93 saturating 100% on room air Related Data Home Medications Medication Instructions Recorded Confirmed albuterol sulfate 90 mcg/actuation 2 puff inhalation Q4H PRN wheezing 11/25/20 11/25/20 aerosol inhaler aspirin 81 mg tablet,delayed 1 tab PO DAILY 11/25/20 11/25/20 release atorvastatin 80 mg tablet 1 tab PO DAILY 11/25/20 11/25/20 clonidine HCl 0.1 mg tablet 1 tab PO BID 11/25/20 11/25/20 gabapentin 300 mg capsule 300 mg PO DAILY 11/25/20 11/25/20 gabapentin 300 mg capsule 600 mg PO BEDTIME 11/25/20 11/25/20 hydrochlorothiazide 25 mg tablet 1 tab PO DAILY 11/25/20 11/25/20 hydroxyzine HCl 50 mg tablet 1 tab PO BID 11/25/20 11/25/20 isosorbide mononitrate 30 mg 1 tab PO DAILY 11/25/20 11/25/20 tablet,extended release 24 hr lisinopril 40 mg tablet 1 tab PO DAILY 11/25/20 11/25/20 omeprazole 20 mg capsule,delayed 1 cap PO DAILY 11/25/20 11/25/20 release trazodone 100 mg tablet 1.5 tab PO BEDTIME PRN Insomnia 11/25/20 11/25/20 Previous Rx's Medication Instructions Recorded ondansetron 4 mg disintegrating 4 mg PO Q6H PRN nausea and 12/17/21 tablet vomiting #14 tabs oxycodone 5 mg tablet 5 mg PO Q6H PRN pain #8 tabs 12/17/21 amlodipine 5 mg tablet 5 mg PO DAILY #30 tabs 06/26/23 blood pressure monitor (Blood #1 ea 06/26/23 Pressure Kit) morphine 15 mg immediate release 15 mg PO Q8H PRN pain #15 tabs 06/26/23 tablet Allergies Allergy/AdvReac Type Severity Reaction Status Date / Time nut - unspecified [NUTS] Allergy Severe ANAPHALAXSI Verified 12/17/21 16:34 S tree nut Allergy Severe Anaphylaxis Verified 11/25/20 21:56 aspirin Allergy Mild none Verified 11/26/20 10:36 atorvastatin [ATORVASTATIN] Allergy Mild none Unverified 11/26/20 10:36 diphenhydramine Allergy Mild Rash Verified 11/25/20 21:54 [From Benadryl] pseudoephedrine Allergy Mild Rash Verified 11/25/20 21:53 acetaminophen Allergy Rash Verified 11/25/20 21:52 ibuprofen [From Motrin] Allergy Rash Verified 11/25/20 21:54 pistachio nut Allergy Anaphylaxis Verified 11/25/20 21:56 Review of Systems Review of Systems: Yes all other systems are reviewed and are negative PMFSH Past Medical History Medical History Cocaine abuse CAD (coronary artery disease) Alcohol dependence Enteritis Myocardial infarction HTN (hypertension) Surgical History S/P cardiac catheterization Social History Social History Household Members: Friend(s) Housing: Apartment Do you presently have visiting nurse or other home services: No Alcohol intake: former Smoked in Last 30 Days: Yes Use of substances other than those prescribed or required for medical reasons: No Substance Use Type: Former Substance User Advance Directives: Yes Advance Directives on File: Yes Advance Directives Date on File: 11/25/20 service: No Current occupational status: unemployed Physical Exam Vital Signs: Vital Signs: Last Vital Signs Temp 97.3 F 06/26/23 21:52 Pulse 84 06/26/23 21:52 Resp 19 06/26/23 21:52 BP 125/68 06/26/23 21:52 Pulse Ox 90 L 06/26/23 21:52 O2 Del Method Room Air 06/26/23 21:52 BMI result Body Mass Index 34.4 Appearance: Alert. Oriented X3. No acute distress. Anxious Eyes: PERRLA, No Nystagmus ENT: Pharynx normal. Oral Mucosa moist Neck: Normal inspection. Neck supple. CVS: Normal heart rate and rhythm. Pulses normal. Respiratory: No respiratory distress. Equal air entry bilateral, no wheezing/rales/rhonchi Abdomen: Soft and nontender. Bowel sounds are present, no mass palpable, no CVA tenderness back: Diffuse spinal tenderness which is chronic Skin: Skin warm and dry. Normal skin color. Normal skin turgor. Extremities: No lower extremity edema. No calf tenderness Neuro: Oriented X 3. No motor deficit. No sensory deficit.No cerebellar signs , cranial nerves II-XII intact Medications Administered Discontinued Medications Generic Name Dose Route Start Last Admin Trade Name Freq PRN Reason Stop Dose Admin Hydralazine HCl 10 mg 06/26/23 19:09 06/26/23 19:18 Hydralazine Hcl 20 Mg/Ml Vial IVPUSH 06/26/23 19:10 10 mg ONCE ONE Administration Protocol Hydromorphone HCl 2 mg 06/26/23 21:00 06/26/23 21:36 Hydromorphone Hcl 2 Mg/Ml Vial IVPUSH 06/26/23 21:01 2 mg ONCE ONE Administration Protocol Labetalol HCl 20 mg 06/26/23 21:31 06/26/23 21:36 Labetalol Hcl 100 Mg/20 Ml Vial IVPUSH 06/26/23 21:32 20 mg ONCE ONE Administration Morphine Sulfate 4 mg 06/26/23 19:09 06/26/23 19:18 Morphine Sulfate 4 Mg/Ml Cartridge IVPUSH 06/26/23 19:10 4 mg ONCE ONE Administration Protocol Ondansetron HCl 4 mg 06/26/23 19:09 06/26/23 19:18 Ondansetron Hcl 4 Mg/2 Ml Vial IVPUSH 06/26/23 19:10 4 mg ONCE ONE Administration Medical Decision Making Medical Decision Making [facility] Narrative: Patient with chronic pain with history of substance abuse in the past clean for last few years had previous cardiac catheterization patient noted to have elevated blood pressure on arrival responded to labetalol and hydralazine IV patient also received pain medication which could be contributing factor for higher blood pressure blood pressure improved to 125/68 patient feeling much better will discharge patient home on amlodipine advised to follow-up with primary care doctor Differential Diagnosis Differential Diagnoses: The differential diagnosis associated with the presentation includes Accelerated hypertension/ACS/musculoskeletal pain/chronic pain/substance abuse Lab Data MDM Lab Attestation statement: I reviewed the patient's lab results. 06/26/23 19:26 06/26/23 19:26 Labs: Lab Results 06/26/23 06/26/23 06/26/23 Range/Units 19:26 19:27 19:28 WBC 3.3 L (4.8-10.8) X10*3/uL RBC 4.85 (4.60-5.80) X10*6/uL Hgb 13.7 L D (14.0-18.0) g/dl Hct 40.3 L D (42.0-52.0) % MCV 83.1 (80.0-98.0) fL MCH 28.2 (27.0-33.0) pg MCHC 34.0 (31.0-36.0) g/dl RDW 13.5 (11.0-16.0) % Plt Count 190 (160-400) X10*3/uL MPV 8.8 L (9.4-12.4) fL Immature Gran % (Auto) 0.3 (0.0-0.4) % Neut % (Auto) 46.0 (45-73) % Lymph % (Auto) 35.1 (20-40) % [place] % (Auto) 11.3 H (2-11) % Eos % (Auto) 6.7 H (0-4) % Baso % (Auto) 0.6 (0-2) % Lymph # (Auto) 1.2 (1.2-4.9) X10*3/uL [place] # (Auto) 0.4 (0.1-1.2) X10*3/uL Eos # (Auto) 0.2 (0.0-0.4) X10*3/uL Baso # (Auto) 0.0 (0.0-0.2) X10*3/uL Abs Immat Gran (auto) 0.01 (0.00-0.03) X10*3/uL Absolute Neuts (auto) 1.5 L (2.0-8.3) x10*3/uL Absolute Nucleated RBC 0.000 (0.0-0.012) X10*3/uL Nucleated RBC % (auto) 0.0 (0.0-0.2) /100WBC PT 10.8 L (11.1-13.3) SEC INR 0.9 (0.9-1.1) Sodium 141 (135-145) mmol/L Potassium 3.8 (3.3-5.1) mmol/L Chloride 107 (96-108) mmol/L Carbon Dioxide 24 (22-29) mmol/L Anion Gap 14 (12-20) BUN 9 (9-16) mg/dL Creatinine 0.85 (0.5-1.4) mg/dL Estim Creat Clear Calc 124.9 Estimated GFR > 60 Random Glucose 104 (60-115) mg/dL Calcium 10.2 (8.4-10.2) mg/dL Troponin I High Sens 6.7 (<3.5-35.0) ng/L Urine Opiates Screen (Not Detect) Urine Fentanyl Screen (Not Detect) Ur Barbiturates Screen (Not Detect) Ur Phencyclidine Scrn (Not Detect) Ur Amphetamines Screen (Not Detect) U Benzodiazepines Scrn (Not Detect) Urine Cocaine Screen (Not Detect) U Marijuana (THC) Screen (Not Detect) COVID-19 (NATHALIE) Cancelled COVID-19 Clin Com Cancelled 06/26/23 Range/Units 19:54 WBC (4.8-10.8) X10*3/uL RBC (4.60-5.80) X10*6/uL Hgb (14.0-18.0) g/dl Hct (42.0-52.0) % MCV (80.0-98.0) fL MCH (27.0-33.0) pg MCHC (31.0-36.0) g/dl RDW (11.0-16.0) % Plt Count (160-400) X10*3/uL MPV (9.4-12.4) fL Immature Gran % (Auto) (0.0-0.4) % Neut % (Auto) (45-73) % Lymph % (Auto) (20-40) % [place] % (Auto) (2-11) % Eos % (Auto) (0-4) % Baso % (Auto) (0-2) % Lymph # (Auto) (1.2-4.9) X10*3/uL [place] # (Auto) (0.1-1.2) X10*3/uL Eos # (Auto) (0.0-0.4) X10*3/uL Baso # (Auto) (0.0-0.2) X10*3/uL Abs Immat Gran (auto) (0.00-0.03) X10*3/uL Absolute Neuts (auto) (2.0-8.3) x10*3/uL Absolute Nucleated RBC (0.0-0.012) X10*3/uL Nucleated RBC % (auto) (0.0-0.2) /100WBC PT (11.1-13.3) SEC INR (0.9-1.1) Sodium (135-145) mmol/L Potassium (3.3-5.1) mmol/L Chloride (96-108) mmol/L Carbon Dioxide (22-29) mmol/L Anion Gap (12-20) BUN (9-16) mg/dL Creatinine (0.5-1.4) mg/dL Estim Creat Clear Calc Estimated GFR Random Glucose (60-115) mg/dL Calcium (8.4-10.2) mg/dL Troponin I High Sens (<3.5-35.0) ng/L Urine Opiates Screen Not Detected (Not Detect) Urine Fentanyl Screen Not Detected (Not Detect) Ur Barbiturates Screen Not Detected (Not Detect) Ur Phencyclidine Scrn Not Detected (Not Detect) Ur Amphetamines Screen Not Detected (Not Detect) U Benzodiazepines Scrn Not Detected (Not Detect) Urine Cocaine Screen Not Detected (Not Detect) U Marijuana (THC) Screen Not Detected (Not Detect) COVID-19 (NATHALIE) COVID-19 Clin Com Independent Interpretation I performed an independent interpretation of an: EKG Interpretation: Sinus tachycardia heart rate 102 beats per minute occasional PVCs no acute STT wave changes no acute ischemia Discharge Plan Discharge Clinical Impression: Chest pain, HTN (hypertension) Patient Disposition: Home, Self-Care Instructions: Chronic Hypertension (ED), Chest Wall Pain (ED) Additional Instructions: Your chest pain is likely musculoskeletal Take pain medication prescribed for joint pain and chest pain Check your blood pressure daily before you takes the medicine and before you go to bed normal blood pressure should be less than 135/85 If blood pressure is elevated start taking new medication as prescribed Prescriptions: New amlodipine 5 mg tablet 5 mg PO DAILY Qty: 30 0RF (DME) blood pressure monitor [Blood Pressure Kit] Kit See Rx Instructions .Route Qty: 1 0RF Rx Instructions: As directed morphine 15 mg tablet 15 mg PO Q8H PRN (Reason: pain) Qty: 15 0RF Rx Instructions: Partial Fill upon patient request. No Action clonidine HCl 0.1 mg tablet 1 tab PO BID isosorbide mononitrate 30 mg tablet extended release 24 hr 1 tab PO DAILY hydroxyzine HCl 50 mg tablet 1 tab PO BID aspirin 81 mg tablet,delayed release (DR/EC) 1 tab PO DAILY trazodone 100 mg tablet 1.5 tab PO BEDTIME PRN (Reason: Insomnia) omeprazole 20 mg capsule,delayed release(DR/EC) 1 cap PO DAILY hydrochlorothiazide 25 mg tablet 1 tab PO DAILY albuterol sulfate 90 mcg/actuation HFA aerosol inhaler 2 puff inhalation Q4H PRN (Reason: wheezing) atorvastatin 80 mg tablet 1 tab PO DAILY gabapentin 300 mg capsule 300 mg PO DAILY gabapentin 300 mg Capsule 600 mg PO BEDTIME lisinopril 40 mg tablet 1 tab PO DAILY oxycodone 5 mg tablet 5 mg PO Q6H PRN (Reason: pain) Qty: 8 0RF ondansetron 4 mg tablet,disintegrating 4 mg PO Q6H PRN (Reason: nausea and vomiting) Qty: 14 0RF Interventions: ED Discharge Assessment Last Done: 06/26/23 23:58 Discharge Date/Time: 06/26/23 23:59
[2023-06-26] MEDS: ondansetron HCL 4 MG/2 ML VIAL IVPUSH (19:18)
[2023-06-26] MEDS: Morphine Sulfate 4 MG/ML CARTRIDGE IVPUSH (19:18)
[2023-06-26] MEDS: hydrALAZINE HCl 20 MG/ML VIAL 10 MG IVPUSH (19:18)
[2023-06-26 19:32] LABS: MANUAL DIFF FLAG NO
[2023-06-26 19:34] LABS: Basophils Percent Auto 0.6 % (0-2); Eosinophils Absolute Auto 0.2 X10*3/uL (0.0-0.4); Eosinophils Percent Auto 6.7 % (0-4); Hematocrit 40.3 % (42.0-52.0); Hemoglobin 13.7 g/dl (14.0-18.0); Imm Gran Abs Auto 0.01 X10*3/uL (0.00-0.03); Imm Gran Pct Auto 0.3 % (0.0-0.4); Lymphocytes Absolute Auto 1.2 X10*3/uL (1.2-4.9); Lymphocytes Percent Auto 35.1 % (20-40); Mean Corpuscular Hemoglobin 28.2 pg (27.0-33.0); Mean Corpuscular Volume 83.1 fL (80.0-98.0); Mean Platelet Volume 8.8 fL (9.4-12.4); Monocytes Absolute Auto 0.4 X10*3/uL (0.1-1.2); Monocytes Percent Auto 11.3 % (2-11); Neutrophils Absolute Auto 1.5 x10*3/uL (2.0-8.3); Platelet Count 190 X10*3/uL (160-400); Red Blood Count 4.85 X10*6/uL (4.60-5.80); Red Cell Distribution Width 13.5 % (11.0-16.0); White Blood Count 3.3 X10*3/uL (4.8-10.8)
[2023-06-26 19:42] LABS: INTERNATIONAL NORM RATIO 0.9 (0.9-1.1); Prothrombin Time 10.8 SEC (11.1-13.3)
[2023-06-26 19:43] VITALS: BP 184/123; PULSE 98; RESP 14; TEMP 36.9; O2SAT 94
[2023-06-26 19:47] LABS: Anion Gap 14 (12-20); Blood Urea Nitrogen 9 mg/dL (9-16); Calcium 10.2 mg/dL (8.4-10.2); Carbon Dioxide 24 mmol/L (22-29); Chloride 107 mmol/L (96-108); Creatinine Clr Calc Pharmacy 124.9; Estimated Glomerular Filt Rate > 60; Glucose Random 104 mg/dL (60-115); Potassium 3.8 mmol/L (3.3-5.1); Sodium 141 mmol/L (135-145)
[2023-06-26 19:55] LABS: Troponin-I High Sensitivity 6.7 ng/L (<3.5-35.0)
[2023-06-26 20:27] LABS: Amphetamine Screen Urine Not Detected (Not Detect); Barbiturates, Urine Not Detected (Not Detect); Benzodiazepines Screen Urine Not Detected (Not Detect); Cannabinoid Screen Urine Not Detected (Not Detect); Cocaine Screen Urine Not Detected (Not Detect); Fentanyl, urine Not Detected (Not Detect); Opiate Screen Urine Not Detected (Not Detect); Phencyclidine Screen Urine Not Detected (Not Detect)
[2023-06-26] MEDS: HYDROmorphone HCl 2 MG/ML VIAL IVPUSH (21:36)
[2023-06-26] MEDS: Labetalol HCL 100 MG/20 ML VIAL 20 MG IVPUSH (21:36)
[2023-06-26 21:52] VITALS: BP 125/68; PULSE 84; RESP 19; TEMP 36.3; O2SAT 90
--- NOTE | 2023-06-26 23:46 | PC.NURSE ---
Addendum entered by Mely Rockwellarnacion 06/26/23 23:57: continuous cardiac monitor technician on, labs drawn Original Note: Patient arrived via ems with reporting of chest, ear, neck, shoulder, and chronic knee pain. PT is alert and oriented, reporting 10/10 pain.IV access established by EMS. line is patent and intact. Bp elevated. Medications administered as per NOV. Plan of care ongoing.
--- NOTE | 2023-06-26 23:58 | PC.NURSE ---
Patient requested and provided food and gingerale.
== END 2023-06-26 23:59 | disposition home or self-care (01) ==
PROVIDERS: Emergency Provider Internal Medicine
DX: R07.9 Chest pain, unspecified (principal); I10 Essential (primary) hypertension; I25.2 Old myocardial infarction; F14.10 Cocaine abuse, uncomplicated; Z79.82 Long term (current) use of aspirin; Z79.899 Other long term (current) drug therapy
CPT/HCPCS: 36415; 73030; 80048; 80307; 84484; 85025; 85610; 87635; 93005; 96374; 96375; 99285; J1170; J2270; J2405